=== PATIENT | female | born 1940 | race Caucasian/White ===

== ENCOUNTER → 2019-09-06 09:18 | Outpatient (CLI) | payer MEDICARE, OTHER, SELFPAY ==
--- NOTE | 2019-09-06 | DI.MG.S_ITS ---
BILATERAL DIGITAL SCREENING MAMMOGRAM 3D/2D WITH CAD: 09/06/2019 CLINICAL: Routine screening. Comparison is made to exams dated: 12/13/2015 mammogram, 11/14/2014 mammogram, and 10/27/2013 mammogram - [facility]. The tissue of both breasts is heterogeneously dense. This may lower the sensitivity of mammography. Current study was also evaluated with a Computer Aided Detection (CAD) system. There are benign vascular calcifications in the right breast. No significant masses, calcifications, or other findings are seen in either breast. There has been no significant interval change. IMPRESSION: There is no mammographic evidence of malignancy. A 1 year screening mammogram is recommended. This exam was interpreted at Station ID: [id number]. NOTE: For mammograms, a report in lay terms will be sent to the patient. Approximately 15% of breast malignancies will not be visualized mammographically. In the management of a palpable breast mass, a negative mammogram must not discourage biopsy of a clinically suspicious lesion. Electronically Signed By: Álvaro navarrete/jeffy:09/07/2019 14:37:54 letter sent: Normal Exam ACR BI-RADS Category 2: Benign Finding(s) [id number]
--- NOTE | 2019-09-06 | DI.RAD.S_ITS ---
PROCEDURE: XR LUMBAR SPINE 2-3V INDICATIONS: LOW BACK PAIN TECHNIQUE: 3 views of the lumbar spine were acquired. COMPARISON: [facility], , L-SPINE 2-3 VIEWS, 12/01/2008, 14:15. FINDINGS: Bones: 5 [id number] vertebrae are present. There is abnormal bony alignment, mild to moderate convex rightward scoliosis centered at L3. No vertebral body compression fractures. No suspicious bony lesions. Moderately severe degenerative disc disease is present over the middle and lower thirds of the lumbosacral spine, and facet osteoarthritis becomes progressively more prominent from L3-S1. It is especially severe at L5-S1. There is an associated mild grade 1 anterolisthesis of L4 on L5, previously present in 2008 Soft tissues: Overlying bowel gas pattern is normal. No suspicious soft tissue calcifications. IMPRESSION: No acute trauma found, moderately severe degenerative disc disease and facet osteoarthritis overall with convex rightward scoliosis mild to moderate in severity and mild grade 1 anterolisthesis of L4 on L5 also stable from 2008. Dictated by: Zach Lizama M.D. on 09/06/2019 at 11:23 Approved by: Zach Lizama M.D. on 09/06/2019 at 11:24
--- NOTE | 2019-09-06 | DI.RAD.S_ITS ---
PROCEDURE: FL UPPER GI SERIES INDICATIONS: Gastro-esophageal reflux disease COMPARISON: [facility], , UPPER GI AIR CONTRAST WITH KUB, 01/28/2016, 10:46. FINDINGS: KUB: Preprocedural corporate planner film demonstrates a normal bowel gas pattern. No suspicious abdominal calcifications. Visualized solid organ contours appear normal. Bony structures appear unremarkable. Esophagus: Esophageal mucosa is normal on air-contrast views. On single-contrast views, there is normal esophageal peristalsis. No strictures, extrinsic mass effects, or diverticula. No hiatal hernia or elicited gastroesophageal reflux. Stomach: The stomach is normally distensible, with normal rugal fold thickness. No mucosal masses or ulcers. Pylorus and duodenal bulb appear normal in morphology. Duodenal folds are normal in thickness as well. IMPRESSION: Intact morphology of the area of the esophageal wrap in this patient who has undergone prior fundoplication. No reflux, either spontaneous or elicited, was observed. The esophageal mucosal surfaces are smoothly marginated, free of stricture or evidence of inflammation. No esophageal mass is found. Dictated by: Zach Lizama M.D. on 09/06/2019 at 12:06 Approved by: Zach Lizama M.D. on 09/06/2019 at 12:09
== END ==
PROVIDERS: PCP Internal Medicine; Referring Provider Internal Medicine; Visit Provider Internal Medicine
DX: Z12.31 Encounter for screening mammogram for malignant neoplasm of breast (principal); K21.0 Gastro-esophageal reflux disease with esophagitis; M54.5 Low back pain; M51.36 Other intervertebral disc degeneration, lumbar region; M47.816 Spondylosis without myelopathy or radiculopathy, lumbar region; M41.86 Other forms of scoliosis, lumbar region; M43.16 Spondylolisthesis, lumbar region
CPT/HCPCS: 72100; 74246; 77063; 77067

== ENCOUNTER → 2019-10-06 09:03 | Outpatient (CLI) | payer MEDICARE, OTHER, SELFPAY | PROVIDERS: PCP Internal Medicine; Referring Provider Internal Medicine Gastroenterology; Visit Provider Internal Medicine Gastroenterology | DX: Z12.11 Encounter for screening for malignant neoplasm of colon (principal) | CPT/HCPCS: 36415; 82274 ==

== ENCOUNTER 2019-12-28 08:56 | Inpatient (IN) | payer MEDICARE, OTHER, SELFPAY ==
[2019-12-28] VITALS (12 sets, daily range): BP systolic 131–178; BP diastolic 59–77; PULSE 64–78; RESP 13–21; TEMP 36.2–37.7; O2SAT 97–100; BMI 29.9; BMI 30.2
--- NOTE | 2019-12-28 09:08 | DI.RAD.S_ITS ---
PROCEDURE: XR CHEST 1V INDICATIONS: chest pain TECHNIQUE: One view of the chest was acquired. COMPARISON: None. FINDINGS: Surgical changes and devices: None. Lungs and pleura: Lungs are clear. No pleural effusions or pneumothorax. Mediastinum: Mediastinal contours appear normal. Heart size is normal. Bones and chest wall: No suspicious bony lesions. Overlying soft tissues appear unremarkable. IMPRESSION: No acute cardiopulmonary disease process. Dictated by: Tali Ferro MD, PhD on 12/28/2019 at 10:29 Approved by: Tali Ferro MD, PhD on 12/28/2019 at 10:30
--- NOTE | 2019-12-28 09:19 | ED.CHESTPAIN ---
HPI - Chest Pain General Chief Complaint: Chest Pain Stated Complaint: binding around ribs/mid back pain x1 day Time Seen by Provider: 12/28/19 09:02 Source: patient and family Mode of arrival: Family Vehicle Limitations: no limitations History of Present Illness HPI narrative: CC: Rib and back pain HPI: Patient is an 79-year-old female who states that 4 years ago she had a Estuardo fundoplication and surgery for hiatal hernia and reflux esophagitis. At that time she felt like she was having severe rib pain that was tightening binding radiating into her back. Last night she redeveloped similar rib pain that was sharp and stabbing. It hurt to moved twist take a deep breath. The pain at worst was 7 to 8/10 in intensity. At the present time it is 5/10. It hurts to take a deep breath and cough. She has had nausea and tried vomiting and gagging. Some disordered came up last night. She denies any significant heartburn but has been having burping belching in eructation with neck pain. She denies any shoulder pain jaw pain ear pain arm pain. She denies being excessively weak and tired. She has had no fall or injury. She has felt short of breath. But has had no significant cough. She is a former smoker drinks alcohol periodically does not use any marijuana. She has had her appendix removed and not her gallbladder. She denies a history of pancreatitis diabetes mellitus hypertension myocardial infarction congestive heart failure COPD that admits to history of asthma. The patient has had diarrhea and lives in a alf community that has not had Covid. She is requesting that she is checked for [place] it before she leaves. Related Data Home Medications Medication Instructions Recorded Confirmed estradiol 0.5 mg PO DAILY 12/28/19 12/28/19 omeprazole 20 mg PO DAILY 12/28/19 12/28/19 oxybutynin chloride 5 mg PO DAILY 12/28/19 12/28/19 simvastatin 10 mg PO DAILY 12/28/19 12/28/19 Allergies Allergy/AdvReac Type Severity Reaction Status Date / Time clindamycin Allergy Unknown Verified 12/28/19 09:28 Penicillins Allergy Unknown Verified 12/28/19 09:28 Sulfa (Sulfonamide Allergy Unknown Verified 12/28/19 09:28 Antibiotics) Review of Systems Review of Systems Narrative: REVIEW OF SYSTEMS: CONSTITUTIONAL: She denies any weight change, fever or sweats but has had intermittent chills. NEUROLOGICAL: She denies any headache numbness tingling paresthesias anesthesia is presents or paralysis. EENT: She has had no change in vision sore throat trouble swallowing. CARDIO-PULMONARY: She has had sharp chest pain that feels like her ribs are being bound with a band radiating into her back. She has been short of breath. She has had no significant cough that when she does cough she produces clear sputum without hemoptysis. She complains that it hurts to take a deep breath and cough. She has had no palpitations or racing of her heart. HEMOTOLOGICAL: She denies any bleeding or bruising problems GASTROINTESTINAL: She has had nausea vomiting burping belching eructation without hematemesis coffee-ground emesis melena or hematochezia. She has had a few diarrhea episodes. GENITAL URINARY: She has had no urinary symptoms. MUSCULOSKELETAL/ RHEUMATOLOGICAL: She has had lower middle back at discomfort. Patient History Medical History Hiatal hernia with GERD (Acute) Hyperlipidemia (Acute) Surgical History H/O total hysterectomy (Acute) S/P Estuardo fundoplication (with gastrostomy tube placement) (Acute) Social History household members: caregiver Smoking Status: Former smoker Smoking Status: Former smoker alcohol intake frequency: 0-2 drinks per day Alcohol type: wine Substance Use Type: does not use Exam Narrative Exam Narrative: PHYSICAL EXAM: CONSTITUTIONAL: Awake, Alert, Oriented, Coherent, Cooperative in NAD. Does not appear toxic or ill. Wearing a mask HEAD: AT/NC EENT: PERRL, FROM of eyes, no discharge, no nystagmus NOSE:No epistaxis or nasal drainage MOUTH:Oral mucosa is moist and pink, posterior pharynx is without erythema or exudate. NECK: Supple, no obvious JVD, Trachea is midline without stridor, no palpable LN. SPINE: Palpationof the cervical, Thoracic, Lumbar or Sacral spine reveals no gross deformity or tenderness. No CVA tenderness. THORAX: No deformity, retractions, the patient's is if he sternum lower sternum and lower right left costal sternal margin are tender to palpation which somewhat mimics the pain and discomfort. LUNGS: Clear, symmetrical breath sounds without respiratory distress. Sometimes I think the patient has slightly decreased breath sounds on the right side. HEART: Normal heart tones, regular rhythm and rate without murmur. ABDOMEN: Soft, tender in the epigastrium without guarding or rebound. LYMPHATIC: no palpable spleen. EXTREMITIES: No edema, deformity, tenderness or cyanosis. SKIN: No rash, bruising, petechiae or purpura. NEURO: Awake, alert, oriented, conversive, cranial nerves II-XII are symmetrical , moves all 4 extremities and is ambulatory. Initial Vital Signs Initial Vital Signs: Vital Signs Temperature 98.7 F 12/28/19 09:10 Pulse Rate 78 12/28/19 09:10 Respiratory Rate 18 12/28/19 09:10 Blood Pressure 178/77 H 12/28/19 09:10 Pulse Oximetry 97 12/28/19 09:10 Course Course Course Narrative: 1018: The patient's white blood count is elevated as well as her lipase and D-dimer. The CT of her chest abdomen and pelvis with IV contrast will be obtained. The patient will need to be admitted for acute pancreatitis. 1049 patient's primary care physician is Dr. jenniffer vega who admits to the hospitalist. The hospitalist has been called. A CT scan of the patient's chest and abdomen has been obtained with the results pending at this time. [address] scan of the chest revealed no acute cardiopulmonary pathology. CT of the patient's abdomen reveals 1. hepatic steatosis 2. Cholelithiasis. Although there is no gallbladder wall thickening, there is minimal fluid around the gallbladder. 3. Incidental note is made of several canal stenoses at L3-L4 and marked canal stenosis at L4-L5. If gallbladder pathology is suspected an ultrasound is recommended. An ultrasound will be obtained since the patient has a significantly elevated white blood count and lipase consistent with acute gallstone pancreatitis. 1120: With the patient's history of cholelithiasis, pericholecystic fluid without gallbladder wall thickening an ultrasound of the gallbladder will be obtained. Since the patient's white blood count is elevated a lactic acid has been ordered on the patient as well as LDH and blood cultures. The patient may have acute moy cystitis and will be administered 2 g of cefepime and 500 mg of metronidazole IV. I will call and discuss the patient with General surgery. Will discuss the patient with Dr. Barrera. 1158: Dr. Matthew cormier notified of the patient's condition and laboratory values and requested a consult. Orders Ordered: Acetaminophen (Tylenol) 650 mg PO Q6HR PRN PRN Reason: Fever/Mild Pain (1-3) Last Admin: 12/28/19 18:01 Dose: 650 mg Documented by: ALBERT Dextrose ([id number]) 25 gm IV PRN PRN; Protocol PRN Reason: Hypoglycemia Estradiol (Estrace) 0.5 mg PO DAILY PAUL Lactated Ringer's (Lactated Ringers) 1,000 mls @ 100 mls/hr IV CONT PAUL Last Admin: 12/29/19 01:22 Dose: 100 mls/hr Documented by: Infusion: 12/29/19 01:22 Dose: 100 mls/hr Documented by: Admin: 12/28/19 13:45 Dose: 100 mls/hr Documented by: CHALINO Metronidazole (Flagyl) 500 mg in 100 mls @ 100 mls/hr IV Q8H [facility] Last Admin: 12/29/19 06:41 Dose: 100 mls/hr Documented by: Infusion: 12/28/19 23:53 Dose: 100 mls/hr Documented by: Admin: 12/28/19 22:53 Dose: 100 mls/hr Documented by: Infusion: 12/28/19 20:37 Dose: 0 mls/hr Documented by: Admin: 12/28/19 15:10 Dose: 100 mls/hr Documented by: ADALBERTO Cefotetan Disodium/Dextrose (Cefotan) 2 gm in 50 mls @ 100 mls/hr IV Q12H [facility] [place] Last Admin: 12/28/19 20:45 Dose: 100 mls/hr Documented by: ALBERT Insulin Aspart (Novolog Flexpen) 0 unit SUBCUT Q6H [facility] [place]; Protocol Last Admin: 12/29/19 05:53 Dose: Not Given Documented by: Admin: 12/28/19 23:58 Dose: Not Given Documented by: RENAE Magnesium Hydroxide (Milk Of Magnesia) 30 ml PO DAILY PRN PRN Reason: Constipation Morphine Sulfate (Morphine) 2 mg IV Q4HR PRN PRN Reason: Pain, Moderate (4-6) Naloxone HCl (Narcan) 0.2 mg IV Q2MIN PRN PRN Reason: Opiate Reversal Stored In Pharmacy 1 each PO PRN PRN PRN Reason: PROTOCOL Ondansetron HCl (Zofran) 4 mg IV Q4HR PRN PRN Reason: Nausea And Vomiting Oxybutynin (Ditropan) 5 mg PO DAILY [facility] Pantoprazole Sodium (Protonix) 20 mg PO 0600 [facility] Last Admin: 12/29/19 05:04 Dose: 20 mg Documented by: IVONNE Simvastatin (Zocor) 10 mg PO DAILY [facility] Sucralfate (Carafate) 1 gm PO ACHS [facility] Last Admin: 12/29/19 06:41 Dose: 1 gm Documented by: Admin: 12/28/19 20:45 Dose: 1 gm Documented by: Admin: 12/28/19 16:52 Dose: 1 gm Documented by: Admin: 12/28/19 11:32 Dose: Not Given Documented by: Admin: 12/28/19 09:45 Dose: 1 gm Documented by: CASPER Discontinued Medications Diphenhydramine HCl (Benadryl) 25 mg IV NOW ONE Stop: 12/28/19 11:21 Last Admin: 12/28/19 12:07 Dose: 25 mg Documented by: CASPER Enoxaparin Sodium (Lovenox) 40 mg SUBCUT DAILY [facility] Heparin Sodium (Porcine) (Heparin) 5,000 unit SUBCUT BID [facility] [place] Last Admin: 12/28/19 20:45 Dose: 5,000 unit Documented by: ALBERT Cefepime HCl 2 gm/ Sodium (Chloride) 100 mls @ 200 mls/hr IV NOW ONE Stop: 12/28/19 11:20 Last Infusion: 12/28/19 13:25 Dose: 0 mls/hr Documented by: Admin: 12/28/19 12:47 Dose: 200 mls/hr Documented by: CASPER Metronidazole (Flagyl) 500 mg in 100 mls @ 100 mls/hr IV NOW ONE Stop: 12/28/19 12:18 Last Infusion: 12/28/19 13:52 Dose: 100 mls/hr Documented by: Infusion: 12/28/19 13:26 Dose: 0 mls/hr Documented by: Admin: 12/28/19 13:18 Dose: 100 mls/hr Documented by: CASPER Lactated Ringer's (Lactated Ringers) 1,000 mls @ 1,000 mls/hr IV BOLUS ONE Stop: 12/28/19 13:23 Last Infusion: 12/28/19 13:43 Dose: 0 mls/hr Documented by: Infusion: 12/28/19 13:26 Dose: 0 mls/hr Documented by: Admin: 12/28/19 12:46 Dose: 1,000 mls/hr Documented by: CASPER Insulin Aspart (Novolog Flexpen) 0 unit SUBCUT [facility]; Protocol Last Admin: 12/28/19 20:37 Dose: Not Given Documented by: Admin: 12/28/19 16:52 Dose: Not Given Documented by: ALBERT Ketorolac Tromethamine (Toradol) 15 mg IV NOW ONE Stop: 12/28/19 09:18 Last Admin: 12/28/19 09:44 Dose: 15 mg Documented by: CASPER Metoclopramide HCl (Reglan) 10 mg IV NOW ONE Stop: 12/28/19 09:18 Last Admin: 12/28/19 09:45 Dose: 10 mg Documented by: CASPER Morphine Sulfate (Morphine) 4 mg IV NOW ONE Stop: 12/28/19 10:23 Last Admin: 12/28/19 10:44 Dose: Not Given Documented by: CASPER Non-Formulary Medication (Omeprazole) 20 mg PO DAILY [facility] Vital Signs Vital signs: Vital Signs - 8 hr 12/28/19 09:10 12/28/19 09:30 12/28/19 10:49 Temperature 98.7 F Pulse Rate 78 68 72 Respiratory Rate 18 18 16 Blood Pressure 178/77 H Blood Pressure [Left Arm] 148/68 H 157/70 H Pulse Oximetry 97 99 97 12/28/19 11:00 12/28/19 11:30 Temperature Pulse Rate 69 67 Respiratory Rate 15 13 Blood Pressure Blood Pressure [Left Arm] 156/67 H 164/68 H Pulse Oximetry 98 99 MDM - Chest Pain Medical Records Data Attestation: I reviewed the patient's medical records. Lab Data Attestation: I reviewed the patient's lab results. Result diagrams: 12/29/19 05:00 12/29/19 05:00 Labs: Lab Results 12/28/19 12/28/19 12/28/19 Range/Units 09:24 09:24 09:24 WBC 17.2 H (4.5-11.0) X10^3/uL RBC 4.76 (4.0-5.2) X10^6/uL Hgb 14.9 (12.0-16.0) g/dL Hct 42.9 (36-46) % MCV 90.1 (80-100) fL MCH 31.2 (26-34) PG MCHC 34.6 (30-36) % RDW 12.9 (11.6-14.8) % Plt Count 220 (150-400) X10^3/uL Neut % (Auto) 87.4 H (50-75) % Lymph % (Auto) 4.6 L (25-40) % [place] % (Auto) 7.4 (3-14) % Eos % (Auto) 0.2 L (2-4) % Baso % (Auto) 0.4 (0-2) % Neut # (Auto) 06064 H (9363-7642) /uL Lymph # (Auto) 800 L (4958-0830) /uL [place] # (Auto) 1300 H (0-900) /uL Eos # (Auto) 0 (0-450) /uL Baso # (Auto) 100 (0-100) /uL PT 12.7 (10.1-12.7) SECONDS INR 1.1 (0.9-1.3) APTT 27 (26.4-36.2) SECONDS D-Dimer 450 H (<230) ng/mL Sodium 136 L (137-145) mmol/L Potassium 4.3 (3.4-5.1) mmol/L Chloride 102 (98-107) mmol/L Carbon Dioxide 26 (22-32) mmol/L BUN 14 (7-17) mg/dL Creatinine 0.72 (0.52-1.04) mg/dL Estimated GFR > 60.0 (>60) mL/min BUN/Creatinine Ratio 19.4 (6-22) Glucose 221 H (80-110) mg/dL Hemoglobin A1c (4.0-6.0) % Calcium 9.3 (8.4-10.2) mg/dL Total Bilirubin 3.2 H (0.2-1.3) mg/dL AST 501 H (14-36) IU/L ALT 268 H (<35) IU/L Alkaline Phosphatase 142 H (38-126) U/L Total Creatine Kinase < 20 L (30-135) U/L CK-MB (CK-2) TNP CK-MB (CK-2) Rel Index TNP Troponin I < 0.012 (0.01-0.034) ng/mL Total Protein 7.1 (6.3-8.2) g/dL Albumin 4.2 (3.5-5.0) g/dL Globulin 2.9 (1.7-4.1) g/dL Albumin/Globulin Ratio 1.4 (1.0-2.8) Lipase 2786 H (23-300) U/L Procalcitonin (<0.5) ng/mL Urine RBC (0-5/HPF) Urine WBC (0-5/HPF) Ur Squamous Epith Cells (0-5/HPF) Urine Bacteria (None) Urine Mucus (Negative) Ur Culture Indicated? 12/28/19 12/28/19 12/28/19 Range/Units 09:24 09:24 09:24 WBC (4.5-11.0) X10^3/uL RBC (4.0-5.2) X10^6/uL Hgb (12.0-16.0) g/dL Hct (36-46) % MCV (80-100) fL MCH (26-34) PG MCHC (30-36) % RDW (11.6-14.8) % Plt Count (150-400) X10^3/uL Neut % (Auto) (50-75) % Lymph % (Auto) (25-40) % [place] % (Auto) (3-14) % Eos % (Auto) (2-4) % Baso % (Auto) (0-2) % Neut # (Auto) (9183-8013) /uL Lymph # (Auto) (3423-8394) /uL [place] # (Auto) (0-900) /uL Eos # (Auto) (0-450) /uL Baso # (Auto) (0-100) /uL PT (10.1-12.7) SECONDS INR (0.9-1.3) APTT (26.4-36.2) SECONDS D-Dimer Cancelled (<230) ng/mL Sodium (137-145) mmol/L Potassium (3.4-5.1) mmol/L Chloride (98-107) mmol/L Carbon Dioxide (22-32) mmol/L BUN (7-17) mg/dL Creatinine (0.52-1.04) mg/dL Estimated GFR (>60) mL/min BUN/Creatinine Ratio (6-22) Glucose (80-110) mg/dL Hemoglobin A1c 7.4 H (4.0-6.0) % Calcium (8.4-10.2) mg/dL Total Bilirubin (0.2-1.3) mg/dL AST (14-36) IU/L ALT (<35) IU/L Alkaline Phosphatase (38-126) U/L Total Creatine Kinase (30-135) U/L CK-MB (CK-2) CK-MB (CK-2) Rel Index Troponin I (0.01-0.034) ng/mL Total Protein (6.3-8.2) g/dL Albumin (3.5-5.0) g/dL Globulin (1.7-4.1) g/dL Albumin/Globulin Ratio (1.0-2.8) Lipase (23-300) U/L Procalcitonin 0.92 H (<0.5) ng/mL Urine RBC (0-5/HPF) Urine WBC (0-5/HPF) Ur Squamous Epith Cells (0-5/HPF) Urine Bacteria (None) Urine Mucus (Negative) Ur Culture Indicated? 12/28/19 Range/Units 10:45 WBC (4.5-11.0) X10^3/uL RBC (4.0-5.2) X10^6/uL Hgb (12.0-16.0) g/dL Hct (36-46) % MCV (80-100) fL MCH (26-34) PG MCHC (30-36) % RDW (11.6-14.8) % Plt Count (150-400) X10^3/uL Neut % (Auto) (50-75) % Lymph % (Auto) (25-40) % [place] % (Auto) (3-14) % Eos % (Auto) (2-4) % Baso % (Auto) (0-2) % Neut # (Auto) (8569-9966) /uL Lymph # (Auto) (2479-6355) /uL [place] # (Auto) (0-900) /uL Eos # (Auto) (0-450) /uL Baso # (Auto) (0-100) /uL PT (10.1-12.7) SECONDS INR (0.9-1.3) APTT (26.4-36.2) SECONDS D-Dimer (<230) ng/mL Sodium (137-145) mmol/L Potassium (3.4-5.1) mmol/L Chloride (98-107) mmol/L Carbon Dioxide (22-32) mmol/L BUN (7-17) mg/dL Creatinine (0.52-1.04) mg/dL Estimated GFR (>60) mL/min BUN/Creatinine Ratio (6-22) Glucose (80-110) mg/dL Hemoglobin A1c (4.0-6.0) % Calcium (8.4-10.2) mg/dL Total Bilirubin (0.2-1.3) mg/dL AST (14-36) IU/L ALT (<35) IU/L Alkaline Phosphatase (38-126) U/L Total Creatine Kinase (30-135) U/L CK-MB (CK-2) CK-MB (CK-2) Rel Index Troponin I (0.01-0.034) ng/mL Total Protein (6.3-8.2) g/dL Albumin (3.5-5.0) g/dL Globulin (1.7-4.1) g/dL Albumin/Globulin Ratio (1.0-2.8) Lipase (23-300) U/L Procalcitonin (<0.5) ng/mL Urine RBC None seen (0-5/HPF) Urine WBC 0-1/hpf (0-5/HPF) Ur Squamous Epith Cells 1-5 /hpf (0-5/HPF) Urine Bacteria Few (2-10) H (None) Urine Mucus 1+ H (Negative) Ur Culture Indicated? Specimen cultured Urine Dip Bedside Urine Glucose Negative Bedside Urine Bilirubin + 1 Bedside Urine Ketone - Negative Urine Specific [place] 1.010 Bedside Urine Occult Blood - Negative Bedside Urine pH 7.5 Bedside Urine Protein +/- 15 Bedside Urine Urobilinogen 2+ 4mg Bedside Urine Nitrite - Negative Bedside Urine Leukocytes +/- 15 Esterase ECG Data Attestation: I personally reviewed and interpreted this ECG as follows: Interpretation: The patient's EKG obtained at 09:1 8:58 a.m. reveals a normal sinus rhythm with a ventricular rate of 70. QTC is normal at 425 milliseconds. The rest of the intervals are normal. There is a left axis deviation. The patient has low voltage criteria with an inverted T-wave in V1. There are no other acute diagnostic ST segment changes. There are no ST segment changes or T-waves to suggest ischemia or infarct. Discharge Plan Departure Patient Disposition: Admitted As Inpatient Clinical Impression: Atypical chest pain, Acute epigastric pain, Acute cholecystitis Acute pancreatitis Qualifiers: Pancreatitis type: unspecified pancreatitis type Acute pancreatitis complication: unspecified Qualified Code(s): K85.90 - Acute pancreatitis without necrosis or infection, unspecified Leukocytosis Qualifiers: Leukocytosis type: unspecified Qualified Code(s): D72.829 - Elevated white blood cell count, unspecified Cholelithiasis Qualifiers: Cholelithiasis location: gallbladder Cholecystitis presence: with cholecystitis Cholecystitis acuity: acute Biliary obstruction: without biliary obstruction Qualified Code(s): K80.00 - Calculus of gallbladder with acute cholecystitis without obstruction Discharge Date/Time: 12/28/19 13:28 Referrals: Martin Ricketts MD [Primary Care Provider] - Admit Date/Time: 12/28/19 11:53 Admit Provider: Conrad Benitez
[2019-12-28 09:35] LABS: Add Manual Diff / Slide Review NO; Basophils Absolute Auto 100 /uL (0-100); Basophils Percent Auto 0.4 % (0-2); Eosinophils Absolute Auto 0 /uL (0-450); Eosinophils Percent Auto 0.2 % (2-4); Hematocrit 42.9 % (36-46); Hemoglobin 14.9 g/dL (12.0-16.0); Lymphocytes Absolute Auto 800 /uL (1100-4500); Lymphocytes Percent Auto 4.6 % (25-40); Mean Corpuscular HGB Conc 34.6 % (30-36); Mean Corpuscular Hemoglobin 31.2 PG (26-34); Mean Corpuscular Volume 90.1 fL (80-100); Monocytes Absolute Auto 1300 /uL (0-900); Monocytes Percent Auto 7.4 % (3-14); Neutrophils Absolute Auto 15100 /uL (1500-7000); Neutrophils Percent Auto 87.4 % (50-75); Platelet Count 220 X10^3/uL (150-400); Red Blood Cell Count 4.76 X10^6/uL (4.0-5.2); Red Cell Distribution Width 12.9 % (11.6-14.8); White Blood Cell Count 17.2 X10^3/uL (4.5-11.0)
[2019-12-28 09:41] LABS: INR 1.1 (0.9-1.3); Prothrombin Time 12.7 SECONDS (10.1-12.7)
[2019-12-28 09:44] LABS: D Dimer 450 ng/mL (<230); PTT Partial Thromboplastin Tim 27 SECONDS (26.4-36.2)
[2019-12-28] MEDS: KETOROLAC 60 MG/2 ML VIAL 15 MG IV (09:44)
[2019-12-28 09:45] LABS: Alanine Aminotransferase 268 IU/L (<35); Albumin 4.2 g/dL (3.5-5.0); Albumin Globulin Ratio 1.4 (1.0-2.8); Alkaline Phosphatase 142 U/L (38-126); Aspartate Aminotransferase 501 IU/L (14-36); BUN Creatinine Ratio 19.4 (6-22); Bilirubin Total 3.2 mg/dL (0.2-1.3); Blood Urea Nitrogen 14 mg/dL (7-17); Calcium 9.3 mg/dL (8.4-10.2); Carbon Dioxide 26 mmol/L (22-32); Chloride 102 mmol/L (98-107); Creatine Kinase < 20 U/L (30-135); Estimated Glomerular Filt Rate > 60.0 mL/min (>60); Globulin 2.9 g/dL (1.7-4.1); Glucose 221 mg/dL (80-110); HEMOLYSIS < 15 (0-50); Potassium 4.3 mmol/L (3.4-5.1); Sodium 136 mmol/L (137-145); Total Protein 7.1 g/dL (6.3-8.2)
[2019-12-28] MEDS: SUCRALFATE 1 GM/10 ML ORAL SUSP PO ×3 (09:45→20:45)
[2019-12-28] MEDS: METOCLOPRAMIDE 10 MG/2 ML INJ IV (09:45)
[2019-12-28 09:55] LABS: Lipase 2786 U/L (23-300)
[2019-12-28 09:56] LABS: Troponin I < 0.012 ng/mL (0.01-0.034)
--- NOTE | 2019-12-28 10:20 | DI.CT.S_ITS ---
PROCEDURE: CT CHEST ABD PEL W CON INDICATIONS: acute abdominal pain with chest pain, pancreatitis, SOB, Paula TECHNIQUE: After the administration of intravenous contrast, 5 mm thick sections acquired from the lung apices to the symphysis. 5 mm coronal and sagittal reformats were performed, with additional 7 mm MIP reformats through the lungs. For radiation dose reduction, the following was used: automated exposure control, adjustment of mA and/or kV according to patient size. COMPARISON: None. FINDINGS: Image quality: Excellent. CHEST: Lungs and pleura: No acute airspace opacities. No pleural effusions or pneumothorax. Central and peripheral airways appear patent and normal in caliber. Mediastinum: Heart size is normal. No pericardial effusion. No mediastinal or hilar adenopathy by size criteria. Thoracic aorta and central pulmonary arteries are normal in size. Esophagus is normal in caliber. No hiatal hernia. Chest wall: No axillary or supraclavicular adenopathy by size criteria. Thyroid gland is unremarkable as visualized.. ABDOMEN: Solid organs: Liver is normal in size and enhancement. Hepatic steatosis. Gallbladder contains numerous calcified gallstones. No gallbladder wall thickening. Minimal fluid around the gallbladder.. Biliary system is non dilated. Pancreas enhances normally. No CT evidence of acute pancreatitis. Spleen is normal in size and enhancement. No adrenal nodules. Kidneys demonstrate normal size and enhancement, without hydronephrosis. Peritoneum and bowel: Bowel loops demonstrate normal wall thickness and caliber. No free fluid or air. Nodes and vessels: No retroperitoneal or mesenteric adenopathy by size criteria. Aorta and inferior vena cava are normal in size. Miscellaneous: No ventral hernias. PELVIS: Genitourinary: Bladder wall thickness is normal. Miscellaneous: No inguinal hernias or adenopathy. Remote hysterectomy. Bones: No suspicious bony lesions. No vertebral body compression fractures. Extensive lumbar degenerative change. Severe canal stenosis at L3-L4. Marked canal stenosis at L4-L5. IMPRESSION: 1. Hepatic steatosis. 2. Cholelithiasis. Although there is no gallbladder wall thickening, there is minimal fluid around the gallbladder. 3. Incidental note is made of severe canal stenosis at L3-L4 and marked canal stenosis at L4-L5. Comment: Suspect acute gallbladder pathology, right upper quadrant ultrasound may be helpful. Dictated by: Dc Velazquez M.D. on 12/28/2019 at 9:50 Approved by: Dc Velazquez M.D. on 12/28/2019 at 9:57
[2019-12-28 11:01] LABS: RBC Urine None Seen (0-5/HPF)
[2019-12-28 11:19] LABS: Bacteria Urine Few (2-10); Culture Indicated Urine Specimen Cultured; Mucus Urine 1+ (Negative); Squamous Epithelial Cell Urine 1-5 /HPF (0-5/HPF); WBC Urine 0-1/HPF (0-5/HPF)
--- NOTE | 2019-12-28 11:21 | DI.US.S_ITS ---
PROCEDURE: US ABDOMEN LIMITED INDICATIONS: CT REVEALS CHOLELITHIASIS W/PERICYSTICOLIC FLUID TECHNIQUE: Real-time focused scanning was performed of the abdomen, with image documentation. COMPARISON: [facility], CT, CT CHEST ABD PEL W CON, 12/28/2019, 10:23. FINDINGS: Liver is normal in size but hyperechoic consistent with fatty infiltration. Gallstones are present within the gallbladder lumen, and there is a small amount of pericholecystic free fluid. The gallbladder wall is not thickened at 1.9 mm. Focal tenderness during sonographic palpation is associated. IMPRESSION: Pain over the gallbladder, mild pericholecystic free fluid, gallstones present within the gallbladder lumen but the gallbladder wall is not thickened. The common duct measures normal at 5.6 mm. Overall mild acute cholecystitis likely is present. Dictated by: Zach Lizama M.D. on 12/28/2019 at 13:35 Approved by: Zach Lizama M.D. on 12/28/2019 at 13:36
[2019-12-28] MEDS: diphenhydrAMINE 50 MG/ML VIAL 25 MG IV (12:07)
[2019-12-28 12:12] LABS: Lactate Dehydrogenase 1326 U/L (313-618)
[2019-12-28 12:25] LABS: Lactate (Lactic Acid) 1.6 mmol/L (0.7-2.1)
[2019-12-28] MEDS: LACTATED RINGERS 1,000 ML 1000 ML IV (12:46)
[2019-12-28] MEDS: CEFEPIME 2 GM in SODIUM CHLORIDE 0.9% 100 ML 200 ML IV (12:47)
[2019-12-28 12:54] LABS: Hemoglobin A1C% w Est Avg Glu 7.4 % (4.0-6.0)
--- NOTE | 2019-12-28 12:56 | PC.NURSE ---
antibiotics started late due to difficulty with lab stick.
[2019-12-28 13:13] LABS: Procalcitonin 0.92 ng/mL (<0.5)
[2019-12-28] MEDS: metroNIDAZOLE 500 MG/100 ML PIGGYBACK 100 MG IV ×3 (13:18→22:53)
[2019-12-28] MEDS: LACTATED RINGERS 1,000 ML 100 ML IV (13:45)
--- NOTE | 2019-12-28 15:08 | P.HP_ITS ---
History of Present Illness History of Present Illness Date Patient Seen: 12/28/19 Time Patient Seen: 14:30 Date of Onset of Symptoms: 12/27/19 Chief complaint: binding around ribs/mid back pain x1 day Narrative: Patient is an 79-year-old female with history of obesity, borderline diabetes, GERD, history of Estuardo fundoplication who presents to ER due to ongoing severe abdominal and back pain. She had acute onset of discomfort last night. She describes location as in the abdomen, around the ribs, and radiating to the mid back. She had nausea and threw up once this morning. The pain reminded her of her reflux prior to her Estuardo procedure although she has not had any reflux symptoms since her surgery at [facility] 4 years ago. She had some chills without known fever. Last bowel movement was this morning. She last ate anything yesterday evening. ER workup included CT which showed gallstones without gallbladder wall thic kening and minimal fluid around the gallbladder. Also hepatic steatosis. Abdominal ultrasound indicated pain over the gallbladder, mild pericholecystic fluid, gallstones without gallbladder wall thickening. The common bile duct was normal at 5.6 mm. Indicated elevated WBC 17.2 with left shift, glucose 221, bilirubin 3.2, AST 501, ALT 268, alk-phos 142, creatinine 0.72, normal lytes. Her lipase was elevated at 2786. Procalcitonin was elevated at 0.92. Patient History Medical History (Updated 12/28/19 @ 15:15 by Conrad Benitez MD) Hiatal hernia with GERD (Acute) Hyperlipidemia (Acute) Surgical History (Updated 12/28/19 @ 15:15 by Conrad Benitez MD) H/O total hysterectomy (Acute) S/P Estuardo fundoplication (with gastrostomy tube placement) (Acute) Family & Social History Social History: household members caregiver Prior Living Arrangements Senior Living Facility Safety & Behavioral: Feels Safe in Current Yes Environment Been Physically Hurt or No Threatened By a Person Suicidal Ideation Description None Suicide Plan Description No Plan Tobacco & Substance use: Smoking Status Former smoker alcohol intake frequency 0-2 drinks per day Substance Use Type does not use Meds Home Medications and Allergies Home Medications Medication Instructions Recorded Confirmed Type estradiol 0.5 mg PO DAILY 12/28/19 12/28/19 History omeprazole 20 mg PO DAILY 12/28/19 12/28/19 History oxybutynin chloride 5 mg PO DAILY 12/28/19 12/28/19 History simvastatin 10 mg PO DAILY 12/28/19 12/28/19 History Allergies Allergy/AdvReac Type Severity Reaction Status Date / Time clindamycin Allergy Unknown Verified 12/28/19 09:28 Penicillins Allergy Unknown Verified 12/28/19 09:28 Sulfa (Sulfonamide Allergy Unknown Verified 12/28/19 09:28 Antibiotics) Review of Systems Review of Systems ROS: Yes All systems reviewed with the patient and are negative except as otherwise documented Exam Vital Signs (past 8 hours): - 12/28/19 09:10 12/28/19 09:30 12/28/19 10:49 Temperature 98.7 F Pulse Rate 78 68 72 Respiratory Rate 18 18 16 Blood Pressure 178/77 H Blood Pressure [Left Arm] 148/68 H 157/70 H Pulse Oximetry 97 99 97 12/28/19 11:00 12/28/19 11:30 12/28/19 12:07 Temperature Pulse Rate 69 67 64 Respiratory Rate 15 13 21 Blood Pressure Blood Pressure [Left Arm] 156/67 H 164/68 H 148/66 H Pulse Oximetry 98 99 98 12/28/19 12:16 12/28/19 12:54 12/28/19 13:30 Temperature 97.2 F L Pulse Rate 64 64 Respiratory Rate 20 18 Blood Pressure 160/71 H Blood Pressure [Left Arm] 159/72 H Pulse Oximetry 100 97 99 Oxygen Delivery Method Room Air Oxygen Flow Rate 0 Narrative Exam Narrative: General: Alert and pleasant female in no acute distress HEENT: Pupils equal and react, oropharynx unremarkable Neck: Supple, trachea midline, no lymphadenopathy Lungs: Clear to auscultation Heart: Normal S1 and S2, regular rate and rhythm, no murmur Abdomen: Obese, bowel sounds present, soft without guarding or tenderness (patient states was tender in ER), no liver or spleen enlargement Extremities: No peripheral edema Neurological: Sensorium intact, nonfocal Objective Labs Result Diagrams: 12/28/19 09:24 12/28/19 09:24 Labs: Laboratory Results - last 24 hr 12/28/19 12/28/19 12/28/19 09:24 09:24 09:24 WBC 17.2 H RBC 4.76 Hgb 14.9 Hct 42.9 MCV 90.1 MCH 31.2 MCHC 34.6 RDW 12.9 Plt Count 220 Neut % (Auto) 87.4 H Lymph % (Auto) 4.6 L [place] % (Auto) 7.4 Eos % (Auto) 0.2 L Baso % (Auto) 0.4 Neut # (Auto) 02019 H Lymph # (Auto) 800 L [place] # (Auto) 1300 H Eos # (Auto) 0 Baso # (Auto) 100 PT 12.7 INR 1.1 APTT 27 D-Dimer 450 H Sodium 136 L Potassium 4.3 Chloride 102 Carbon Dioxide 26 BUN 14 Creatinine 0.72 Estimated GFR > 60.0 BUN/Creatinine Ratio 19.4 Glucose 221 H Hemoglobin A1c Lactate Calcium 9.3 Total Bilirubin 3.2 H AST 501 H ALT 268 H Alkaline Phosphatase 142 H Lactate Dehydrogenase Total Creatine Kinase < 20 L CK-MB (CK-2) TNP CK-MB (CK-2) Rel Index TNP Troponin I < 0.012 Total Protein 7.1 Albumin 4.2 Globulin 2.9 Albumin/Globulin Ratio 1.4 Lipase 2786 H Procalcitonin Urine RBC Urine WBC Ur Squamous Epith Cells Urine Bacteria Urine Mucus Ur Culture Indicated? 12/28/19 12/28/19 12/28/19 09:24 09:24 09:24 WBC RBC Hgb Hct MCV MCH MCHC RDW Plt Count Neut % (Auto) Lymph % (Auto) [place] % (Auto) Eos % (Auto) Baso % (Auto) Neut # (Auto) Lymph # (Auto) [place] # (Auto) Eos # (Auto) Baso # (Auto) PT INR APTT D-Dimer Cancelled Sodium Potassium Chloride Carbon Dioxide BUN Creatinine Estimated GFR BUN/Creatinine Ratio Glucose Hemoglobin A1c 7.4 H Lactate Calcium Total Bilirubin AST ALT Alkaline Phosphatase Lactate Dehydrogenase Total Creatine Kinase CK-MB (CK-2) CK-MB (CK-2) Rel Index Troponin I Total Protein Albumin Globulin Albumin/Globulin Ratio Lipase Procalcitonin 0.92 H Urine RBC Urine WBC Ur Squamous Epith Cells Urine Bacteria Urine Mucus Ur Culture Indicated? 12/28/19 12/28/19 12/28/19 10:45 11:55 11:55 WBC RBC Hgb Hct MCV MCH MCHC RDW Plt Count Neut % (Auto) Lymph % (Auto) [place] % (Auto) Eos % (Auto) Baso % (Auto) Neut # (Auto) Lymph # (Auto) [place] # (Auto) Eos # (Auto) Baso # (Auto) PT INR APTT D-Dimer Sodium Potassium Chloride Carbon Dioxide BUN Creatinine Estimated GFR BUN/Creatinine Ratio Glucose Hemoglobin A1c Lactate 1.6 Calcium Total Bilirubin AST ALT Alkaline Phosphatase Lactate Dehydrogenase 1326 H Total Creatine Kinase CK-MB (CK-2) CK-MB (CK-2) Rel Index Troponin I Total Protein Albumin Globulin Albumin/Globulin Ratio Lipase Procalcitonin Urine RBC None seen Urine WBC 0-1/hpf Ur Squamous Epith Cells 1-5 /hpf Urine Bacteria Few (2-10) H Urine Mucus 1+ H Ur Culture Indicated? Specimen cultured Assessment & Plan Assessment & Plan narrative: This is an 79-year-old female with obesity, gallstones, diabetes presenting with acute abdominal pain radiating to the back, nausea and vomiting x 1 day. 1. Acute gallstone cholecystitis, present on admission, active -patient with upper abdominal pain, gallstones and pericholecystic fluid on ultrasound and CT, without GB wall thickening -afebrile with stable vitals, normal lactic acid, WBC 17.2 with elevated procalcitonin -bowel rest, IV antibiotics -Cefotetan 2 g IV Q 12 hours and metronidazole 500 mg IV q.8 hours for antibiotic management -LR 100 cc/hour -morphine IV as needed for moderate severe pain, Zofran IV as needed for nausea/vomiting -surgical consult, Dr. Le -patient without history of cardiac disease, troponin is normal, and she is at low risk for surgery (timing per Dr. Le) 2. Acute gallstone pancreatitis, present on admission, active -presented with upper abdominal pain radiating to back, lipase 2786, elevated bilirubin, alk-phos and LFTs consistent with gallstone pancreatitis -no pancreatic fluid or inflammation on CT -managed with bowel rest and IV fluids and pain control 3. Type 2 diabetes, new diagnosis -patient reports history of borderline diabetes without previous diabetes diagnosis -glucose 221, hemoglobin A1c 7.4 confirmatory of type 2 diabetes -provide sliding scale insulin -patient counseled briefly on diet and increasing level of activity and possibly starting on oral medication through her PCP -continue simvastatin 10 mg q.d. per home routine Admit status: Inpatient DVT prophylaxis: Enoxaparin Code status: Full code
--- NOTE | 2019-12-28 15:20 | PC.NURSE ---
Patient admitted to [facility] wheeled from ED around 1300. Patient AxO x4. Lungs CTA, Abdomen soft non tender BT x4. 100% O2 sat on RA. Patient denies any pain or any discomfort. IV Cefotan and Flagyl infused prior shift change. Right forearm peripheral IV intact. LR fluid running at 100mls/hr. Patient education done regarding the use of call light. Patien verbalized understanding
--- NOTE | 2019-12-28 16:57 | PM.CN ---
History of Present Illness Consult details Date Patient Seen: 12/28/19 Time Patient Seen: 16:57 Chief complaint: binding around ribs/mid back pain x1 day Reason for consult: Gallstone pancreatitis; acute cholecystitis Requesting provider: Conrad Benitez Narrative: This is an 79 yo woman with history of obesity, borderline DM, GERD, history of open repair of massive paraesophageal hernia and Estuardo fundoplication. She presented today to the ER with severe abdominal and back pain. She had acute onset of upper abdominal pain after eating a beef soup for dinner. The pain was bilateral under her anterior ribs radiating around to the mid back. She had nausea and threw up once this morning. She was afraid the pain may be due to a problem from her prior PEH repair. She has never had any symptoms or problems related to the surgery. She still takes Omeprazole, but says she has not had any reflux symptoms since her PEH repair at [facility] 4 years ago. She denies fevers or jaundice. Last bowel movement was this morning. She last PO intake was yesterday evening. In the ER she had a CT scan which showed gallstones without gallbladder wall thickening and minimal fluid around the gallbladder, and hepatic steatosis. Abdominal ultrasound with positive chandler sign, mild pericholecystic fluid, gallstones without gallbladder wall thickening. The CBD was normal at 5.6 mm. WBC was 17.2 with left shift, glucose 221, bilirubin 3.2, AST 501, ALT 268, alk-phos 142, creatinine 0.72, normal lytes. Her lipase was elevated at 2786. Procalcitonin was elevated at 0.92. She was admitted to the hospitalist service. She says her pain is better now since receiving pain meds. She denies nausea at this time. ROS: CONSTITUTIONAL: She denies any weight change, fever or sweats but has had intermittent chills. NEUROLOGICAL: She denies any headache numbness tingling paresthesias anesthesia is presents or paralysis. EENT: She has had no change in vision sore throat trouble swallowing. CARDIO-PULMONARY: She has had sharp chest pain that feels like her ribs are being bound with a band radiating into her back. She has been short of breath. She has had no significant cough that when she does cough she produces clear sputum without hemoptysis. She complains that it hurts to take a deep breath and cough. She has had no palpitations or racing of her heart. HEMOTOLOGICAL: She denies any bleeding or bruising problems GASTROINTESTINAL: She has had nausea vomiting burping belching eructation without hematemesis coffee-ground emesis melena or hematochezia. She has had a few diarrhea episodes. GENITAL URINARY: She has had no urinary symptoms. MUSCULOSKELETAL/ RHEUMATOLOGICAL: She has had lower middle back at discomfort. PE: GENERAL: Alert, comfortable. Appears stated age. Answers questions promptly and appropriately. Vital signs noted. HENT: Normocephalic, atraumatic. Hearing intact. Oral mucosa is pink and moist. EYES: Conjunctiva pink, sclera white, no periorbital swelling. CARDIOVASCULAR: Regular rate. No pedal edema. RESPIRATORY: Non-tachypneic, breathing comfortably on room air. GASTROINTESTINAL: Abdomen soft, nontender, and non-distended; well healed upper midline incisional scar GENITALURINARY: No flank tenderness. MUSCULOSKELETAL: Equal tone and mass bilaterally. SKIN: Warm, dry, soft, appropriate color for ethnicity. No other lesions, rashes, or wounds. NEURO: Alert and Oriented X 3. No gross sensory deficits, or cognitive issues. PSYCH: Appropriate affect and mood. Meds Home Medications and Allergies Home Medications Medication Instructions Recorded Confirmed Type estradiol 0.5 mg PO DAILY 12/28/19 12/28/19 History omeprazole 20 mg PO DAILY 12/28/19 12/28/19 History oxybutynin chloride 5 mg PO DAILY 12/28/19 12/28/19 History simvastatin 10 mg PO DAILY 12/28/19 12/28/19 History Allergies Allergy/AdvReac Type Severity Reaction Status Date / Time clindamycin Allergy Unknown Verified 12/28/19 09:28 Penicillins Allergy Unknown Verified 12/28/19 09:28 Sulfa (Sulfonamide Allergy Unknown Verified 12/28/19 09:28 Antibiotics) Exam Vital Signs (past 8 hours): - 12/28/19 09:10 12/28/19 09:30 12/28/19 10:49 Temperature 98.7 F Pulse Rate 78 68 72 Respiratory Rate 18 18 16 Blood Pressure 178/77 H Blood Pressure [Left Arm] 148/68 H 157/70 H Pulse Oximetry 97 99 97 12/28/19 11:00 12/28/19 11:30 12/28/19 12:07 Temperature Pulse Rate 69 67 64 Respiratory Rate 15 13 21 Blood Pressure Blood Pressure [Left Arm] 156/67 H 164/68 H 148/66 H Pulse Oximetry 98 99 98 12/28/19 12:16 12/28/19 12:54 12/28/19 13:30 Temperature 97.2 F L Pulse Rate 64 64 Respiratory Rate 20 18 Blood Pressure 160/71 H Blood Pressure [Left Arm] 159/72 H Pulse Oximetry 100 97 99 12/28/19 16:05 Temperature 99.9 F H Pulse Rate 78 Respiratory Rate 20 Blood Pressure 156/73 H Blood Pressure [Left Arm] Pulse Oximetry 98 Oxygen Delivery Method Room Air Oxygen Flow Rate [address] scan - abdomen: Radiologist's impression: [address] [address] Ultrasound Report Signed Patient: Mary Kenny EMR#: [id number] : 1940Acct:[id number] Age/Sex: 79 / FDate of Service: 12/28/19 Loc: HQ820-6 Accession Number: [id number] Procedure: US abdomen limited Ordering Provider: Weston Bender MD PROCEDURE: US ABDOMEN LIMITED INDICATIONS: CT REVEALS CHOLELITHIASIS W/PERICYSTICOLIC FLUID TECHNIQUE: Real-time focused scanning was performed of the abdomen, with image documentation. COMPARISON: [facility], CT, CT CHEST ABD PEL W CON, 12/28/2019, 10:23. FINDINGS: Liver is normal in size but hyperechoic consistent with fatty infiltration. Gallstones are present within the gallbladder lumen, and there is a small amount of pericholecystic free fluid. The gallbladder wall is not thickened at 1.9 mm. Focal tenderness during sonographic palpation is associated. IMPRESSION: Pain over the gallbladder, mild pericholecystic free fluid, gallstones present within the gallbladder lumen but the gallbladder wall is not thickened. The common duct measures normal at 5.6 mm. Overall mild acute cholecystitis likely is present. Dictated by: Zach Lizama M.D. on 12/28/2019 at 13:35 Approved by: Zach Lizama M.D. on 12/28/2019 at 13:[address] [address] [address] Scan Report Signed Patient: Mary Kenny EMR#: [id number] : 1940Acct:[id number] Age/Sex: 79 / FDate of Service: 12/28/19 Loc: ED Accession Number: [id number] Procedure: CT chest abd pel w con Ordering Provider: Weston Bender MD PROCEDURE: CT CHEST ABD PEL W CON INDICATIONS: acute abdominal pain with chest pain, pancreatitis, SOB, Paula TECHNIQUE: After the administration of intravenous contrast, 5 mm thick sections acquired from the lung apices to the symphysis. 5 mm coronal and sagittal reformats were performed, with additional 7 mm MIP reformats through the lungs. For radiation dose reduction, the following was used: automated exposure control, adjustment of mA and/or kV according to patient size. COMPARISON: None. FINDINGS: Image quality: Excellent. CHEST: Lungs and pleura: No acute airspace opacities. No pleural effusions or pneumothorax. Central and peripheral airways appear patent and normal in caliber. Mediastinum: Heart size is normal. No pericardial effusion. No mediastinal or hilar adenopathy by size criteria. Thoracic aorta and central pulmonary arteries are normal in size. Esophagus is normal in caliber. No hiatal hernia. Chest wall: No axillary or supraclavicular adenopathy by size criteria. Thyroid gland is unremarkable as visualized.. ABDOMEN: Solid organs: Liver is normal in size and enhancement. Hepatic steatosis. Gallbladder contains numerous calcified gallstones. No gallbladder wall thickening. Minimal fluid around the gallbladder.. Biliary system is non dilated. Pancreas enhances normally. No CT evidence of acute pancreatitis. Spleen is normal in size and enhancement. No adrenal nodules. Kidneys demonstrate normal size and enhancement, without hydronephrosis. Peritoneum and bowel: Bowel loops demonstrate normal wall thickness and caliber. No free fluid or air. Nodes and vessels: No retroperitoneal or mesenteric adenopathy by size criteria. Aorta and inferior vena cava are normal in size. Miscellaneous: No ventral hernias. PELVIS: Genitourinary: Bladder wall thickness is normal. Miscellaneous: No inguinal hernias or adenopathy. Remote hysterectomy. Bones: No suspicious bony lesions. No vertebral body compression fractures. Extensive lumbar degenerative change. Severe canal stenosis at L3-L4. Marked canal stenosis at L4-L5. IMPRESSION: 1. Hepatic steatosis. 2. Cholelithiasis. Although there is no gallbladder wall thickening, there is minimal fluid around the gallbladder. 3. Incidental note is made of severe canal stenosis at L3-L4 and marked canal stenosis at L4-L5. Comment: Suspect acute gallbladder pathology, right upper quadrant ultrasound may be helpful. Dictated by: Dc Velazquez M.D. on 12/28/2019 at 9:50 Approved by: Dc Velazquez M.D. on 12/28/2019 at 9:57 Labs Result Diagrams: 12/28/19 09:24 12/28/19 09:24 Labs: Laboratory Results - last 24 hr 12/28/19 12/28/19 12/28/19 09:24 09:24 09:24 WBC 17.2 H RBC 4.76 Hgb 14.9 Hct 42.9 MCV 90.1 MCH 31.2 MCHC 34.6 RDW 12.9 Plt Count 220 Neut % (Auto) 87.4 H Lymph % (Auto) 4.6 L [place] % (Auto) 7.4 Eos % (Auto) 0.2 L Baso % (Auto) 0.4 Neut # (Auto) [address] H Lymph # (Auto) 800 L [place] # (Auto) 1300 H Eos # (Auto) 0 Baso # (Auto) 100 PT 12.7 INR 1.1 APTT 27 D-Dimer 450 H Sodium 136 L Potassium 4.3 Chloride 102 Carbon Dioxide 26 BUN 14 Creatinine 0.72 Estimated GFR > 60.0 BUN/Creatinine Ratio 19.4 Glucose 221 H Hemoglobin A1c Lactate Calcium 9.3 Total Bilirubin 3.2 H AST 501 H ALT 268 H Alkaline Phosphatase 142 H Lactate Dehydrogenase Total Creatine Kinase < 20 L CK-MB (CK-2) TNP CK-MB (CK-2) Rel Index TNP Troponin I < 0.012 Total Protein 7.1 Albumin 4.2 Globulin 2.9 Albumin/Globulin Ratio 1.4 Lipase 2786 H Procalcitonin Urine RBC Urine WBC Ur Squamous Epith Cells Urine Bacteria Urine Mucus Ur Culture Indicated? 12/28/19 12/28/19 12/28/19 09:24 09:24 09:24 WBC RBC Hgb Hct MCV MCH MCHC RDW Plt Count Neut % (Auto) Lymph % (Auto) [place] % (Auto) Eos % (Auto) Baso % (Auto) Neut # (Auto) Lymph # (Auto) [place] # (Auto) Eos # (Auto) Baso # (Auto) PT INR APTT D-Dimer Cancelled Sodium Potassium Chloride Carbon Dioxide BUN Creatinine Estimated GFR BUN/Creatinine Ratio Glucose Hemoglobin A1c 7.4 H Lactate Calcium Total Bilirubin AST ALT Alkaline Phosphatase Lactate Dehydrogenase Total Creatine Kinase CK-MB (CK-2) CK-MB (CK-2) Rel Index Troponin I Total Protein Albumin Globulin Albumin/Globulin Ratio Lipase Procalcitonin 0.92 H Urine RBC Urine WBC Ur Squamous Epith Cells Urine Bacteria Urine Mucus Ur Culture Indicated? 12/28/19 12/28/19 12/28/19 10:45 11:55 11:55 WBC RBC Hgb Hct MCV MCH MCHC RDW Plt Count Neut % (Auto) Lymph % (Auto) [place] % (Auto) Eos % (Auto) Baso % (Auto) Neut # (Auto) Lymph # (Auto) [place] # (Auto) Eos # (Auto) Baso # (Auto) PT INR APTT D-Dimer Sodium Potassium Chloride Carbon Dioxide BUN Creatinine Estimated GFR BUN/Creatinine Ratio Glucose Hemoglobin A1c Lactate 1.6 Calcium Total Bilirubin AST ALT Alkaline Phosphatase Lactate Dehydrogenase 1326 H Total Creatine Kinase CK-MB (CK-2) CK-MB (CK-2) Rel Index Troponin I Total Protein Albumin Globulin Albumin/Globulin Ratio Lipase Procalcitonin Urine RBC None seen Urine WBC 0-1/hpf Ur Squamous Epith Cells 1-5 /hpf Urine Bacteria Few (2-10) H Urine Mucus 1+ H Ur Culture Indicated? Specimen cultured Assessment & Plan Assessment and plan (1) Hiatal hernia with GERD: Current visit: Yes Status: Acute (2) S/P Estuardo fundoplication (with gastrostomy tube placement): Current visit: Yes Status: Acute (3) Atypical chest pain: Current visit: Yes Status: Acute (4) Acute epigastric pain: Current visit: Yes Status: Acute (5) Acute pancreatitis: Qualifiers: Acute pancreatitis complication: unspecified Pancreatitis type: unspecified pancreatitis type Qualified Code(s): K85.90 - Acute pancreatitis without necrosis or infection, unspecified Current visit: Yes Status: Acute (6) Leukocytosis: Qualifiers: Leukocytosis type: unspecified Qualified Code(s): D72.829 - Elevated white blood cell count, unspecified Current visit: Yes Status: Acute (7) Acute cholecystitis: Current visit: Yes Status: Acute (8) Cholelithiasis: Qualifiers: Biliary obstruction: without biliary obstruction Cholecystitis acuity: acute Cholecystitis presence: with cholecystitis Cholelithiasis location: gallbladder Qualified Code(s): K80.00 - Calculus of gallbladder with acute cholecystitis without obstruction Current visit: Yes Status: Acute Assessment & Plan narrative: 79 yo woman with history of open repair of large PEH with estuardo fundoplication, now admitted with acute gallstone pancreatitis and cholecystitis. 35 minutes were spent face to face with the patient and reviewing hospital records. More than 50% of the time was spent in counseling and co-ordination of care regarding her symptoms, imaging, surgical history, expected hospital course, possible outcomes, risk and benefit of surgery. I explained to the patient that in gallstone pancreatitis, the standard practice is to remove the gallbladder before the patient is discharged from the hospital, as there is high risk of recurrence of pancreatitis within a few weeks after discharge. I have also explained to her that we usually wait until the symptoms have resolved in the labs have begun to resolve before we take out the gallbladder due to a higher risk of complications if we operate during acute pancreatitis. Plan: Preop COVID-19 testing RICCI for possible surgery tomorrow or Thursday NPO except for water and ice chips Antibiotics with gram-negative coverage Ambulate as tolerated Daily labs to include CMP, CBC, and lipase Home meds Pain meds as needed Antiemetics as needed Okay for DVT prophylaxis tonight, hold in a.m. COVID-19 COVID-19 status: Result pending Time Spent With Patient Time with patient: Greater than 35 minutes
[2019-12-28] MEDS: ACETAMINOPHEN 325 MG TABLET 650 MG PO (18:01)
[2019-12-28] MEDS: HEPARIN 5,000 UNIT/ML VIAL 5000 UNIT SUBCUT (20:45)
[2019-12-28] MEDS: CEFOTETAN 2 GM/50 ML PIGGYBACK IV (20:45)
[2019-12-29] VITALS (18 sets, daily range): BP systolic 118–148; BP diastolic 48–66; PULSE 62–79; RESP 10–18; TEMP 35.9–37.3; O2SAT 93–100
--- NOTE | 2019-12-29 | PATH_ITS ---
[facility] Accession Number: [id number] . 01 Material submitted: . gallbladder - GALLBLADDER . 01 Clinical history: . BINDING AROUND RIBS/MID BACK PAIN X1 DAY . 02 Diagnosis: Gallbladder, Cholecystectomy: Cholelithiasis with mild chronic cholecystitis. No evidence of neoplasm. [facility] 01/03/2020 1524 Local . 02 Electronically signed: . Zion Lopez MD, PhD, Pathologist NPI- [id number] . 01 Gross description: . GALLBLADDER: Received in formalin is an unopened gallbladder 6.5 cm in length and 2.8 cm in maximum fundic diameter. The non-hepatic serosa is smooth and shiny. The lumen contains green bile and multiple brown 1.5 CM stones. The mucosa is smooth, shiny, and flat. The wall is 0.1 cm thick. Emergency Preparedness Manager sections are submitted in 2 cassettes. /[facility] 12/30/2019 1400 Local . 02 Pathologist provided ICD-10: K80.60, K81.1 . 02 CPT . 834549 Performed at: 01 [facility] [address] [facility], [place], [place] [id number] MD Álvaro William MD Phone: [phone] Performed at: [facility] [address] [place], [place] [id number] MD Carol Hodgson MD Phone: [phone]
[2019-12-29] MEDS: LACTATED RINGERS 1,000 ML 100 ML IV ×3 (01:22→19:07)
[2019-12-29] MEDS: PANTOPRAZOLE 20 MG TABLET PO (05:04)
[2019-12-29 05:22] LABS: Add Manual Diff / Slide Review NO; Basophils Absolute Auto 0 /uL (0-100); Basophils Percent Auto 0.4 % (0-2); Eosinophils Absolute Auto 100 /uL (0-450); Eosinophils Percent Auto 0.9 % (2-4); Hematocrit 37.8 % (36-46); Hemoglobin 13.1 g/dL (12.0-16.0); Lymphocytes Absolute Auto 800 /uL (1100-4500); Lymphocytes Percent Auto 8.3 % (25-40); Mean Corpuscular HGB Conc 34.6 % (30-36); Mean Corpuscular Hemoglobin 31.3 PG (26-34); Mean Corpuscular Volume 90.6 fL (80-100); Monocytes Absolute Auto 700 /uL (0-900); Monocytes Percent Auto 8.1 % (3-14); Neutrophils Absolute Auto 7600 /uL (1500-7000); Neutrophils Percent Auto 82.3 % (50-75); Platelet Count 179 X10^3/uL (150-400); Red Blood Cell Count 4.17 X10^6/uL (4.0-5.2); Red Cell Distribution Width 13.4 % (11.6-14.8); White Blood Cell Count 9.3 X10^3/uL (4.5-11.0)
[2019-12-29 05:31] LABS: Lipase 1550 U/L (23-300)
[2019-12-29 05:32] LABS: Alanine Aminotransferase 217 IU/L (<35); Albumin 3.3 g/dL (3.5-5.0); Albumin Globulin Ratio 1.2 (1.0-2.8); Alkaline Phosphatase 113 U/L (38-126); Aspartate Aminotransferase 170 IU/L (14-36); BUN Creatinine Ratio 21.3 (6-22); Bilirubin Total 1.9 mg/dL (0.2-1.3); Blood Urea Nitrogen 17 mg/dL (7-17); Calcium 8.7 mg/dL (8.4-10.2); Carbon Dioxide 28 mmol/L (22-32); Chloride 104 mmol/L (98-107); Estimated Glomerular Filt Rate > 60.0 mL/min (>60); Globulin 2.7 g/dL (1.7-4.1); Glucose 131 mg/dL (80-110); HEMOLYSIS < 15 (0-50); Potassium 3.7 mmol/L (3.4-5.1); Sodium 135 mmol/L (137-145)
[2019-12-29 05:50] LABS: Procalcitonin 1.13 ng/mL (<0.5)
[2019-12-29] MEDS: metroNIDAZOLE 500 MG/100 ML PIGGYBACK 100 MG IV ×3 (06:41→22:25)
[2019-12-29] MEDS: SUCRALFATE 1 GM/10 ML ORAL SUSP PO (06:41)
[2019-12-29] MEDS: CEFOTETAN 2 GM/50 ML PIGGYBACK IV ×2 (08:37→21:16)
[2019-12-29] MEDS: OXYBUTYNIN 5 MG TABLET PO (08:37)
[2019-12-29] MEDS: estradioL 0.5 MG TABLET PO (08:37)
[2019-12-29] MEDS: SIMVASTATIN 10 MG TABLET PO (08:37)
--- NOTE | 2019-12-29 10:00 | PC.NURSE ---
Addendum entered by Milka Leonard R.N. 12/29/19 11:53: Covid 19 status is negative. Pt still in NPO excepr fir ice chips and water. Pt denies any pain or any discomfort at this time. Original Note: Patient in bed watching TV beginning of shift. Alert and oriented x4. 100% O2 sat RA. Denies any pain or any discomofort. MD came in to check pt and discussed planned surgery this afternoon pending covid 19 result. Pt is NPO except ice and water. Took all due meds this AM. Pt still in ABX IV Cefotan and Flagyl. Held DVT prophylaxis this AM per MD's order.Pt's IV right AC intact LR runnning 100 mls/hr
[2019-12-29 10:38] LABS: COVID19 -Nasal RAPID Negative (Negative)
--- NOTE | 2019-12-29 11:16 | PM.PN.1 ---
Subjective Subjective Date Patient Seen: 12/29/19 Interval history: Patient is 79-year-old female who is admitted due to gallstone pancreatitis and cholecystitis. Patient is not having significant abdominal pain. No nausea or vomiting. Exam Vital Signs (past 8 hours): - 12/29/19 05:00 12/29/19 08:00 12/29/19 09:00 Temperature 97.8 F 97.9 F Pulse Rate 67 64 Respiratory Rate 18 18 Blood Pressure 124/60 148/66 H Pulse Oximetry 97 96 100 Oxygen Delivery Method Room Air Oxygen Flow Rate 0 Narrative Exam Narrative: General: Alert, pleasant and in no acute distress Lungs: Clear to auscultation Heart: Regular rhythm Abdomen: Nondistended, soft and nontender Extremities: No edema Neurological: Sensorium intact Objective Labs Result Diagrams: 12/29/19 05:00 12/29/19 05:00 Labs: Laboratory Results - last 24 hr 12/28/19 12/28/19 12/28/19 09:24 09:24 10:45 WBC RBC Hgb Hct MCV MCH MCHC RDW Plt Count Neut % (Auto) Lymph % (Auto) [place] % (Auto) Eos % (Auto) Baso % (Auto) Neut # (Auto) Lymph # (Auto) [place] # (Auto) Eos # (Auto) Baso # (Auto) Sodium Potassium Chloride Carbon Dioxide BUN Creatinine Estimated GFR BUN/Creatinine Ratio Glucose Hemoglobin A1c 7.4 H Lactate Calcium Total Bilirubin AST ALT Alkaline Phosphatase Lactate Dehydrogenase Total Protein Albumin Globulin Albumin/Globulin Ratio Lipase Procalcitonin 0.92 H Urine RBC None seen Urine WBC 0-1/hpf Ur Squamous Epith Cells 1-5 /hpf Urine Bacteria Few (2-10) H Urine Mucus 1+ H Ur Culture Indicated? Specimen cultured COVID-19 PCR 12/28/19 12/28/19 12/28/19 11:55 11:55 16:55 WBC RBC Hgb Hct MCV MCH MCHC RDW Plt Count Neut % (Auto) Lymph % (Auto) [place] % (Auto) Eos % (Auto) Baso % (Auto) Neut # (Auto) Lymph # (Auto) [place] # (Auto) Eos # (Auto) Baso # (Auto) Sodium Potassium Chloride Carbon Dioxide BUN Creatinine Estimated GFR BUN/Creatinine Ratio Glucose Hemoglobin A1c Lactate 1.6 Calcium Total Bilirubin AST ALT Alkaline Phosphatase Lactate Dehydrogenase 1326 H Total Protein Albumin Globulin Albumin/Globulin Ratio Lipase Procalcitonin Urine RBC Urine WBC Ur Squamous Epith Cells Urine Bacteria Urine Mucus Ur Culture Indicated? COVID-19 PCR Cancelled 12/28/19 12/29/19 12/29/19 16:55 05:00 05:00 WBC RBC Hgb Hct MCV MCH MCHC RDW Plt Count Neut % (Auto) Lymph % (Auto) [place] % (Auto) Eos % (Auto) Baso % (Auto) Neut # (Auto) Lymph # (Auto) [place] # (Auto) Eos # (Auto) Baso # (Auto) Sodium Potassium Chloride Carbon Dioxide BUN Creatinine Estimated GFR BUN/Creatinine Ratio Glucose Hemoglobin A1c Lactate Calcium Total Bilirubin AST ALT Alkaline Phosphatase Lactate Dehydrogenase Total Protein Albumin Globulin Albumin/Globulin Ratio Lipase 1550 H Procalcitonin 1.13 H Urine RBC Urine WBC Ur Squamous Epith Cells Urine Bacteria Urine Mucus Ur Culture Indicated? COVID-19 PCR Negative 12/29/19 12/29/19 05:00 05:00 WBC 9.3 RBC 4.17 Hgb 13.1 Hct 37.8 MCV 90.6 MCH 31.3 MCHC 34.6 RDW 13.4 Plt Count 179 Neut % (Auto) 82.3 H Lymph % (Auto) 8.3 L [place] % (Auto) 8.1 Eos % (Auto) 0.9 L Baso % (Auto) 0.4 Neut # (Auto) 7600 H Lymph # (Auto) 800 L [place] # (Auto) 700 Eos # (Auto) 100 Baso # (Auto) 0 Sodium 135 L Potassium 3.7 Chloride 104 Carbon Dioxide 28 BUN 17 Creatinine 0.80 Estimated GFR > 60.0 BUN/Creatinine Ratio 21.3 Glucose 131 H Hemoglobin A1c Lactate Calcium 8.7 Total Bilirubin 1.9 H AST 170 H ALT 217 H Alkaline Phosphatase 113 Lactate Dehydrogenase Total Protein 6.0 L Albumin 3.3 L Globulin 2.7 Albumin/Globulin Ratio 1.2 Lipase Procalcitonin Urine RBC Urine WBC Ur Squamous Epith Cells Urine Bacteria Urine Mucus Ur Culture Indicated? COVID-19 PCR Assessment & Plan Assessment & Plan narrative: Patient is 79-year-old female admitted with acute gallstone pancreatitis and cholecystitis. 1. Acute gallstone cholecystitis, present on admission, active -patient with gallstones and pericholecystic fluid on ultrasound and CT, without GB wall thickening -symptoms improving, WBC declining, procalcitonin about the same -afebrile with stable vitals, normal lactic acid -on bowel rest, IV antibiotics -Cefotetan 2 g IV Q 12 hours and metronidazole 500 mg IV q.8 hours for antibiotic management -LR 100 cc/hour -morphine IV as needed for moderate severe pain, Zofran IV as needed for nausea/vomiting -surgical consult, Dr. Le -patient without history of cardiac disease, troponin is normal, and she is at low risk for surgery -scheduled for laparoscopic cholecystectomy later today 2. Acute gallstone pancreatitis, present on admission, active -presented with upper abdominal pain radiating to back, lipase 2786, elevated bilirubin, alk-phos and LFTs consistent with gallstone pancreatitis -LFTs and lipase decreasing -no pancreatic fluid or inflammation on CT -managed with bowel rest and IV fluids and pain control 3. Type 2 diabetes, new diagnosis -patient reports history of borderline diabetes without previous diabetes diagnosis -glucose 221, hemoglobin A1c 7.4 confirmatory of type 2 diabetes -provide sliding scale insulin -patient counseled briefly on diet and increasing level of activity and possibly starting on oral medication through her PCP -continue simvastatin 10 mg q.d. per home routine Admit status: Inpatient DVT prophylaxis: Enoxaparin Code status: Full code
--- NOTE | 2019-12-29 14:36 | CM.IDA ---
Initial DCP Assessment Note: Patient is an 79 yo female, resident of [place]. Patient presents w/acute gallstone cholecystitis, going to surgery this evening for lap moy. PCP: Martin Ricketts Payer: [employer] Reviewed chart. Met w/patient to introduce role. Patient is eagerly awaiting surgery this evening, states she is typically quite healthy, active and indp and is confident that her can take care of her upon medical DC. 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 OLEKSANDR Riddle Discharge Planning/Care Management CM Discharge Assessment Start: 12/29/19 14:33 Freq: Status: Active Protocol: Document 12/29/19 14:33 JOSE (Rec: 12/29/19 14:36 JOSE [id number]) Discharge Planning Assessment Assigned Director Of Partner Marketing OLEKSANDR Urena DPOA/Assigned Designee Name Filiberto Kenny, spouse Contact Information [phone] Advance Directives? Yes History Provided By Patient Prior Living Arrangements Apartment/Condo Household Members spouse Type of transporation used prior to Drives own vehicle admit Independent with ADL's Yes Is patient alert and oriented? Yes Barriers to Discharge No Discharge Plan Home Transportation Arrangement Spouse Referrals Initiated None needed
[2019-12-29 14:39] LABS: Acinetobacter baumannii Not Detected (Not Detect); E. coli Not Detected (Not Detect); Enterobacter cloacae complex Not Detected (Not Detect); Enterobacteriaceae species Not Detected (Not Detect); Enterococcus species Not Detected (Not Detect); Listeria monocytogenes Not Detected (Not Detect); Methicillin-resistant gene Not Detected (Not Detect); Streptococcus agalactiae (Gr B Not Detected (Not Detect); Streptococcus pneumonia Not Detected (Not Detect); Streptococcus pyogenes (Gr A) Not Detected (Not Detect); Streptococcus species Not Detected (Not Detect)
[2019-12-29 14:40] LABS: Candida albicans Not Detected (Not Detect); Candida glabrata Not Detected (Not Detect); Candida krusei Not Detected (Not Detect); Candida parapsilosis Not Detected (Not Detect); Candida tropicalis Not Detected (Not Detect); Haemophilus influenzae Not Detected (Not Detect); Neisseria meningitidis Not Detected (Not Detect); Proteus species Not Detected (Not Detect); Pseudomonas aeruginosa Not Detected (Not Detect); Serratia marcescens Not Detected (Not Detect); Staphylococcus species Detected (Not Detect)
--- NOTE | 2019-12-29 15:04 | SUR.HOLD ---
Patient to Pre-op from inpatient room 223. VSS. GCS 15; Patient denies pain.
[2019-12-29] MEDS: LACTATED RINGERS 1,000 ML 42 ML IV (15:15)
--- NOTE | 2019-12-29 16:29 | SUR.OPER ---
Supine on padded OR bed, head on pillow, arms secured on padded arm boards at <90 degrees abduction, legs uncrossed, safety belt at thigh, tape over blanket over lower legs.
[2019-12-29] MEDS: BUPIVACAINE 0.25% W/ EPI 30 ML VIAL 60 ML INJ (17:31)
--- NOTE | 2019-12-29 18:02 | PM.OP.1 ---
Operative Date/Time/Diagnoses Date of procedure: 12/29/19 Time of procedure: 18:02 Pre-op diagnosis: gallstone pancreatitis; cholecystitis Post-op diagnosis: same Procedure & Clinicians Procedure: laparoscopic cholecystectomy with fluorescene cholangiography Same procedure as scheduled: Yes Indications: Acute cholecystitis; gallstone pancreatitis Surgeon: Sallie Barrera Click Yes if Unassisted: Yes Anesthesia Type: General Operative Notes Findings: thickened gall bladder; adhesions Specimen(s): other (gall bladder) Estimated Blood Loss (mL): 5 Blood products transfused: none Procedure in detail: The patient was brought into the operating room and placed supine on the OR table. Sequential compression devices were placed on both legs and turned on. Appropriate perioperative antibiotics were given prior to the start of surgery. General anesthesia was induced the patient was intubated. The abdomen was prepped and draped in sterile fashion. Surgical time-out was conducted. Local anesthetic was injected under the skin just inferior to the umbilicus and a 5 mm vertical incision was made at this site. The umbilical stalk was grasped with a Karrie and elevated. A Veress needle was passed through the fascia into proper position. The position was tested with a saline drop test which was appropriate for intra-abdominal Veress needle placement. The abdomen was then insufflated in the usual fashion. Once insufflated to 15 mm Hg the Veress needle was removed and a 5 mm optical trocar was placed under direct vision using a 5 mm 30 degree scope. Once the camera was inside the abdomen I took a look around. There was no injury from port placement. Two additional ports were placed in a similar fashion in the right upper quadrant and a 10 mm port was placed in the epigastrium. Through the 2 lateral ports the gallbladder was grasped and elevated and the infundibulum was retracted laterally to the patient's right. There were dense adhesions of omentum stuck to the liver and gallbladder. These adhesions were gradually taken down using [place] and L hook cautery. I was then able to retract the gallbladder cranially and laterally to the patient's right. This exposed the gallbladder hilum and allowed for dissection of the cystic duct and cystic artery. There was quite a bit of dense inflammatory, and well vascularized scar tissue throughout the gallbladder hilum. The gallbladder was densely adherent to the liver, and some bleeding occurred on the liver surface when the gallbladder was retracted. These inflammatory adhesions required tedious careful dissection to avoid injury to the bile ducts. Indocyanine green was given to the patient 45 minutes prior to surgery. At this point the operation I was able to turn on the floor seen lamp and view the gallbladder and bile ducts lighting up green. The cystic duct was folded on itself, and I went back to regular view mode and carefully dissected some fibrous adhesions off of the duct in order to straighten it out. I looked again with the fluorescein light and was able to see the cystic duct anteriorly and the cystic artery just posterior to it, in the normal position. Once the cystic duct and artery were completely dissected out and I was able to see liver behind and between both structures without any other structures in the way, giving us the critical view of safety. At this point I doubly clipped both structures on the patient's side and put a single clip on the gallbladder side of both the cystic duct and artery. Both structures were then divided with laparoscopic Stiven. Following this the gallbladder was gradually dissected free from the liver. There was quite a bit of hypervascularity of the scar tissue between the gallbladder and the liver. Several small vessels had to be controlled with cautery. Once the gallbladder was entirely freed, it was placed inside an Endo-Catch bag and removed through the epigastric port site. I [did] have to enlarge the epigastric site in order to get the gallbladder out. Once it was out and passed off to the back table I then took another look inside the abdomen. I suctioned clean any remaining blood or fluid on the lateral side of the liver and in the subhepatic space. There was some raw surface bleeding from the liver in the gallbladder fossa. I cauterized this with the L hook, and there was no further bleeding. At this point there was no active bleeding or leaking of bile from the gallbladder fossa or from the clipped stumps of the cystic duct and artery. The epigastric port site was closed with 0 Vicryl suture in the fascia using the Damian Raman device, 3 O Vicryl in the subcutaneous layers, and 4 Monocryl in the skin. The remaining port sites were closed with 4 Monocryl in the skin. The epigastric port site was sealed with Steri-Strips, 2 x 2 and Tegaderm. Each of the other port sites were sealed with Dermabond. Local anesthetic was given at each of the port sites and in the fascia. This concluded the procedure. At this point the needle sponge and instrument counts were correct. The gallbladder was passed off the table for pathology. Patient was awakened from anesthesia and extubated. She was transferred to the postanesthesia care unit in stable condition. Complications: none Post-operative Condition: stable Disposition: PACU
--- NOTE | 2019-12-29 18:12 | SUR.PHASEI ---
Chin support needed initiallStable PACU stay, taking ice ships well, report attempted, RN unavailable. RITIKA Aguilar to call back.
--- NOTE | 2019-12-29 18:16 | SUR.PHASEI ---
Raisa returned call, report given.
--- NOTE | 2019-12-29 18:40 | SUR.PHASEI ---
Pt transported up to room 223 on 2/l nasal cannula. Left with RITIKA Aguilar in stable condition.
[2019-12-29] MEDS: MORPHINE 2 MG/ML INJ IV ×2 (19:06→22:57)
[2019-12-29] MEDS: ACETAMINOPHEN 325 MG TABLET 650 MG PO (21:25)
[2019-12-30] VITALS (11 sets, daily range): BP systolic 128–160; BP diastolic 62–86; PULSE 61–71; RESP 16–18; TEMP 36.3–37.1; O2SAT 94–98
--- NOTE | 2019-12-30 01:10 | PC.NURSE ---
Addendum entered by Leidy Garcia R.N. 12/30/19 05:54: Per BUSINESS EDUCATION TEACHER patient to return to [facility] CBG checks and sliding scale. Original Note: Patient is AxOx3, can make needs known. Titrated supplemental oxygen down from 2L to 1L for trial. Diminished breath sounds in bases r/t pain with inspiration, otherwise clear. Educated patient on need for deep breathing and the use of splinting to assist in pain management. Abdomen is slightly distended and tender to palpation. Hypoactive bowel tones, denies passing flatus since surgery. Patient reported she does not routinely pass gas. Proximal lap site covered with gauze and tegaderm, other 3 MAY with dermabond. 3 circular rashes on upper chest from tele stickers. Pain reported in upper right quadrant near ribs, medicated per MAR. Has not been OOB since surgery. Moderate fall risk, bed alarm on and functioning, call light in reach.
[2019-12-30] MEDS: MORPHINE 2 MG/ML INJ IV ×2 (04:57→09:45)
[2019-12-30] MEDS: PANTOPRAZOLE 20 MG TABLET PO (06:04)
[2019-12-30] MEDS: LACTATED RINGERS 1,000 ML 100 ML IV (06:05)
[2019-12-30] MEDS: metroNIDAZOLE 500 MG/100 ML PIGGYBACK 100 MG IV ×3 (06:05→22:40)
[2019-12-30] MEDS: CEFOTETAN 2 GM/50 ML PIGGYBACK IV ×2 (09:10→20:26)
[2019-12-30] MEDS: SIMVASTATIN 10 MG TABLET PO (09:11)
[2019-12-30] MEDS: HEPARIN 5,000 UNIT/ML VIAL 5000 UNIT SUBCUT ×2 (09:11→20:26)
[2019-12-30] MEDS: estradioL 0.5 MG TABLET PO (09:11)
[2019-12-30] MEDS: OXYBUTYNIN 5 MG TABLET PO (09:11)
[2019-12-30 09:54] LABS: Add Manual Diff / Slide Review NO; Basophils Absolute Auto 100 /uL (0-100); Basophils Percent Auto 0.5 % (0-2); Eosinophils Absolute Auto 100 /uL (0-450); Eosinophils Percent Auto 1.1 % (2-4); Hematocrit 37.2 % (36-46); Hemoglobin 12.8 g/dL (12.0-16.0); Lymphocytes Absolute Auto 900 /uL (1100-4500); Lymphocytes Percent Auto 8.9 % (25-40); Mean Corpuscular HGB Conc 34.4 % (30-36); Mean Corpuscular Hemoglobin 31.5 PG (26-34); Mean Corpuscular Volume 91.7 fL (80-100); Monocytes Absolute Auto 1100 /uL (0-900); Monocytes Percent Auto 10.1 % (3-14); Neutrophils Absolute Auto 8400 /uL (1500-7000); Neutrophils Percent Auto 79.4 % (50-75); Platelet Count 175 X10^3/uL (150-400); Red Blood Cell Count 4.06 X10^6/uL (4.0-5.2); Red Cell Distribution Width 13.3 % (11.6-14.8); White Blood Cell Count 10.6 X10^3/uL (4.5-11.0)
[2019-12-30 10:14] LABS: Alanine Aminotransferase 138 IU/L (<35); Albumin 3.2 g/dL (3.5-5.0); Albumin Globulin Ratio 1.1 (1.0-2.8); Alkaline Phosphatase 115 U/L (38-126); Aspartate Aminotransferase 93 IU/L (14-36); BUN Creatinine Ratio 18.8 (6-22); Bilirubin Total 0.7 mg/dL (0.2-1.3); Blood Urea Nitrogen 13 mg/dL (7-17); Calcium 8.4 mg/dL (8.4-10.2); Carbon Dioxide 25 mmol/L (22-32); Chloride 101 mmol/L (98-107); Estimated Glomerular Filt Rate > 60.0 mL/min (>60); Globulin 2.8 g/dL (1.7-4.1); Glucose 249 mg/dL (80-110); HEMOLYSIS < 15 (0-50); Potassium 3.7 mmol/L (3.4-5.1); Sodium 132 mmol/L (137-145)
--- NOTE | 2019-12-30 10:40 | PM.PN.1 ---
Subjective Subjective Date Patient Seen: 12/30/19 Time Patient Seen: 10:40 Interval history: No acute events overnight. Pt says she has a hard time taking a deep breath. Denies nausea. Says she would like to eat. Exam Vital Signs (past 8 hours): - 12/30/19 04:25 12/30/19 05:00 12/30/19 07:23 Temperature 97.6 F 98.5 F Pulse Rate 61 61 Respiratory Rate 16 16 Blood Pressure 129/62 136/64 Pulse Oximetry 97 96 95 12/30/19 08:00 Temperature Pulse Rate Respiratory Rate Blood Pressure Pulse Oximetry 96 Oxygen Delivery Method Room Air Oxygen Flow Rate 0 Narrative Exam Narrative: General: Alert, oriented, comfortable Pulmonary: Breathing comfortably on room air, non tachypneic Abdomen: Soft, appropriate tenderness to palpation, incisions and dressings clean dry and intact Objective Labs Result Diagrams: 12/30/19 09:47 12/30/19 09:47 Labs: Laboratory Results - last 24 hr 12/28/19 12/30/19 12/30/19 12:46 09:47 09:47 WBC 10.6 RBC 4.06 Hgb 12.8 Hct 37.2 MCV 91.7 MCH 31.5 MCHC 34.4 RDW 13.3 Plt Count 175 Neut % (Auto) 79.4 H Lymph % (Auto) 8.9 L Carbon % (Auto) 10.1 Eos % (Auto) 1.1 L Baso % (Auto) 0.5 Neut # (Auto) 8400 H Lymph # (Auto) 900 L Carbon # (Auto) 1100 H Eos # (Auto) 100 Baso # (Auto) 100 Sodium 132 L Potassium 3.7 Chloride 101 Carbon Dioxide 25 BUN 13 Creatinine 0.69 Estimated GFR > 60.0 BUN/Creatinine Ratio 18.8 Glucose 249 H D Calcium 8.4 Total Bilirubin 0.7 AST 93 H ALT 138 H Alkaline Phosphatase 115 Total Protein 6.0 L Albumin 3.2 L Globulin 2.8 Albumin/Globulin Ratio 1.1 A. baumannii (PCR) Not detected Gregoria albicans (PCR) Not detected C. glabrata (PCR) Not detected C. krusei (PCR) Not detected C. parapsilosis (PCR) Not detected C. tropicalis (PCR) Not detected Enterobacteriac sp PCR Not detected E. cloacae complex PCR Not detected Enterococcus sp PCR Not detected E. coli (PCR) Not detected H. influenzae (PCR) Not detected Klebsiella oxytoca PCR Not detected Klebsiella pneumoniae Not detected List. monocytogenes PCR Not detected N. meningitidis (PCR) Not detected Proteus species (PCR) Not detected Serratia marcescens PCR Not detected Staphylococcus sp PCR Detected H Staph aureus (PCR) Not detected mecA-Methicil Res Gene Not detected Streptococcus sp PCR Not detected Group A Strep (PCR) Not detected Strep agalactiae (PCR) Not detected Strep pneumoniae (PCR) Not detected P. aeruginosa (PCR) Not detected Josefa/B-Vanco Res Genes Not Reportable KPC-Carbap Res Gene PCR Not Reportable Assessment & Plan Assessment and plan (1) Acute cholecystitis: Current visit: Yes Status: Acute (2) Acute pancreatitis: Qualifiers: Acute pancreatitis complication: unspecified Pancreatitis type: unspecified pancreatitis type Qualified Code(s): K85.90 - Acute pancreatitis without necrosis or infection, unspecified Current visit: Yes Status: Acute Assessment & Plan narrative: 79-year-old woman postop day 1 status post laparoscopic cholecystectomy for acute cholecystitis and gallstone pancreatitis. Labs look very good, consistent with resolving cholecystitis and pancreatitis, and non obstruction of the bile duct. Okay to advance patient to low-fat diet as tolerated. Encouraged patient to get up and ambulate, and to take deep breaths. Plan: Advanced diet as tolerated Incentive spirometer Pain control p.o. pain med Dispo planning when patient is able to manage her pain and able to eat well enough to go home Encourage ambulation COVID-19 COVID-19 status: Negative Time Spent With Patient Time with patient: 15-24 minutes Quality VTE Deep Vein Thrombosis/Pulmonary Embolism Present on Admission: No
[2019-12-30] MEDS: DOCUSATE 100 MG CAPSULE PO ×2 (11:13→20:27)
[2019-12-30 11:22] LABS: Lipase 403 U/L (23-300)
[2019-12-30] MEDS: INSULIN ASPART 100 UNIT/ML INSULN PEN SUBCUT ×3 (11:59→20:40)
[2019-12-30] MEDS: ACETAMINOPHEN 325 MG TABLET 650 MG PO ×2 (14:41→20:41)
--- NOTE | 2019-12-30 15:58 | PM.PN.1 ---
Subjective Subjective Date Patient Seen: 12/30/19 Interval history: Patient is 79-year-old female who is admitted due to gallstone pancreatitis and cholecystitis. She is postop day 1 Laparoscopic cholecystectomy. Patient complaining of right pleuritic pain which is expected after lap choly. She is tolerating clear liquid diet. Exam Vital Signs (past 8 hours): - 12/30/19 08:00 12/30/19 11:15 12/30/19 11:49 Temperature 98.8 F Pulse Rate 63 Respiratory Rate 16 Blood Pressure 128/86 Pulse Oximetry 96 94 96 Oxygen Delivery Method Room Air Oxygen Flow Rate 0 Narrative Exam Narrative: General: Alert, pleasant and in no acute distress Lungs: Clear to auscultation Heart: Regular rhythm Abdomen: Nondistended, soft and nontender Extremities: No edema Neurological: Sensorium intact Objective Labs Result Diagrams: 12/30/19 09:47 12/30/19 09:47 Labs: Laboratory Results - last 24 hr 12/30/19 12/30/19 12/30/19 09:47 09:47 09:47 WBC 10.6 RBC 4.06 Hgb 12.8 Hct 37.2 MCV 91.7 MCH 31.5 MCHC 34.4 RDW 13.3 Plt Count 175 Neut % (Auto) 79.4 H Lymph % (Auto) 8.9 L [place] % (Auto) 10.1 Eos % (Auto) 1.1 L Baso % (Auto) 0.5 Neut # (Auto) 8400 H Lymph # (Auto) 900 L [place] # (Auto) 1100 H Eos # (Auto) 100 Baso # (Auto) 100 Sodium 132 L Potassium 3.7 Chloride 101 Carbon Dioxide 25 BUN 13 Creatinine 0.69 Estimated GFR > 60.0 BUN/Creatinine Ratio 18.8 Glucose 249 H D Calcium 8.4 Total Bilirubin 0.7 AST 93 H ALT 138 H Alkaline Phosphatase 115 Total Protein 6.0 L Albumin 3.2 L Globulin 2.8 Albumin/Globulin Ratio 1.1 Lipase 403 H D Assessment & Plan Assessment & Plan narrative: Patient is 79-year-old female admitted with acute gallstone pancreatitis and cholecystitis. 1. Acute gallstone cholecystitis, present on admission, active -status post lap choly on 12/29/[address] Le -patient with gallstones and pericholecystic fluid on ultrasound and CT, without GB wall thickening -afebrile with stable vitals -advanced diet as tolerated -Cefotetan 2 g IV Q 12 hours and metronidazole 500 mg IV q.8 hours for antibiotic management -DC IV fluids -can likely discharged on oral antibiotics tomorrow Thursday 2. Acute gallstone pancreatitis, present on admission, resolved -presented with upper abdominal pain radiating to back, lipase 2786, elevated bilirubin, alk-phos and LFTs consistent with gallstone pancreatitis -LFTs and lipase decreasing -no pancreatic fluid or inflammation on CT 3. Type 2 diabetes, new diagnosis -patient reports history of borderline diabetes without previous diabetes diagnosis -glucose running high postop, hemoglobin A1c 7.4 confirmatory of type 2 diabetes -provide sliding scale insulin -patient counseled briefly on diet and increasing level of activity and possibly starting on oral medication through her PCP -continue simvastatin 10 mg q.d. per home routine Quality VTE Deep Vein Thrombosis/Pulmonary Embolism Present on Admission: No
--- NOTE | 2019-12-30 21:54 | PC.NURSE ---
Pt is A and O x 4, VSS. Rates pain 4/10 taking APAP only. Able to eat and sleep. Using BR, walks independently. Lap sites C/D/I. Voiding qs, clear yellow. +BTs.
[2019-12-31] VITALS: BP 153/58; PULSE 66; RESP 16; TEMP 36.1; O2SAT 94
[2019-12-31] MEDS: ACETAMINOPHEN 325 MG TABLET 650 MG PO ×2 (02:50→08:23)
--- NOTE | 2019-12-31 02:56 | PC.NURSE ---
Addendum entered by Dilcia Barron R.N. 12/31/19 06:21: Patient using I.S. and has been able to get up to 1250. States she has started passing flatus this morning. Original Note: Patient initially seen and assessed at 0020. Is alert and oriented. Breath sounds with inspiratory crackles bilateral bases and RA sat of 94%. Respirations more shallow and patient stated it hurts to breathe but refusing to take any pain medications other than Tylenol. Educated on importance of pain control to allow for deep breathing in order to prevent post op complications but continues to refuse other pain medication and too early to give additional Tylenol at that time but now awake and medicated with Tylenol. Provided with incentive spirometer and instructed in use. HRR. BP elevated at 153/58. Denies nausea. BT present but denies having passed flatus. Able to turn self in bed and is getting up to bathroom with SBA. Denies any dysuria, frequency or urgency. Dressing to mid upper abdomen is CDI; other lap sites are dermabonded and have no redness. Wearing bilateral calf SCD's. Fall risk score is moderate; bed alarm is activated.
[2019-12-31 03:00] VITALS: BP 167/73; PULSE 65; RESP 16; TEMP 36.8; O2SAT 94
[2019-12-31] MEDS: SODIUM CHLORIDE 0.9% FLUSH 10 ML IV ×2 (06:10→08:17)
[2019-12-31] MEDS: metroNIDAZOLE 500 MG/100 ML PIGGYBACK 100 MG IV (06:10)
[2019-12-31] MEDS: PANTOPRAZOLE 20 MG TABLET PO (06:11)
[2019-12-31 07:44] VITALS: BP 175/71; PULSE 62; RESP 16; TEMP 36.3; O2SAT 95
[2019-12-31 08:05] VITALS: O2SAT 97
[2019-12-31] MEDS: INSULIN ASPART 100 UNIT/ML INSULN PEN SUBCUT ×2 (08:14→12:43)
[2019-12-31] MEDS: OXYBUTYNIN 5 MG TABLET PO (08:15)
[2019-12-31] MEDS: estradioL 0.5 MG TABLET PO (08:15)
[2019-12-31] MEDS: SIMVASTATIN 10 MG TABLET PO (08:17)
[2019-12-31] MEDS: HEPARIN 5,000 UNIT/ML VIAL 5000 UNIT SUBCUT (08:17)
[2019-12-31] MEDS: CEFOTETAN 2 GM/50 ML PIGGYBACK IV (08:18)
[2019-12-31] MEDS: DOCUSATE 100 MG CAPSULE PO (08:23)
--- NOTE | 2019-12-31 10:12 | DI.RAD.S_ITS ---
PROCEDURE: XR CHEST 1V INDICATIONS: shortness of breath TECHNIQUE: One view of the chest was acquired. COMPARISON: None. FINDINGS: Surgical changes and devices: None. Lungs and pleura: Lungs are clear. No pleural effusions or pneumothorax. Mediastinum: Mediastinal contours appear normal. Heart size is normal. Bones and chest wall: No suspicious bony lesions. Overlying soft tissues appear unremarkable. IMPRESSION: No evidence acute pulmonary process. Dictated by: Dc Velazquez M.D. on 12/31/2019 at 10:01 Approved by: Dc Velazquez M.D. on 12/31/2019 at 10:02
[2019-12-31 11:35] VITALS: BP 149/74; PULSE 66; RESP 18; TEMP 36.2; O2SAT 96
[2019-12-31 12:34] VITALS: O2SAT 96
--- NOTE | 2019-12-31 13:27 | P.DS_ITS ---
History of Present Illness History of Present Illness Date Patient Seen: 12/31/19 Chief complaint: binding around ribs/mid back pain x1 day Narrative: Patient is an 79-year-old female with history of obesity, borderline diabetes, GERD, history of Estuardo fundoplication who presents to ER due to ongoing severe abdominal and back pain. She had acute onset of discomfort last night. She describes location as in the abdomen, around the ribs, and radiating to the mid back. She had nausea and threw up once this morning. The pain reminded her of her reflux prior to her Estuardo procedure although she has not had any reflux symptoms since her surgery at [facility] 4 years ago. She had some chills without known fever. Last bowel movement was this morning. She last ate anything yesterday evening. ER workup included CT which showed gallstones without gallbladder wall thickening and minimal fluid around the gallbladder. Also hepatic steatosis. Abdominal ultrasound indicated pain over the gallbladder, mild pericholecystic fluid, gallstones without gallbladder wall thickening. The common bile duct was normal at 5.6 mm. Indicated elevated WBC 17.2 with left shift, glucose 221, bilirubin 3.2, AST 501, ALT 268, alk-phos 142, creatinine 0.72, normal lytes. Her lipase was elevated at 2786. Procalcitonin was elevated at 0.92. Discharge Providers Provider Date of admission: 12/28/19 11:53 Discharge Date: 12/31/19 Primary care physician: Martin Ricketts MD Discharge provider: Zuleima Bender MD Summary Hospital Course Discharge Diagnosis: 1. Gallstone pancreatitis 2. Acute cholecystitis 3. Status post laparoscopic cholecystectomy 4. Type 2 diabetes 5. Hypertension 6. GERD Hospital Course: Patient was admitted to the hospital for gallstone pancreatitis. Abdominal ultrasound and abdominal CT confirmed diagnosis. The patient recovered from her pancreatitis quite quickly and was taken to the ope rating room for laparoscopic cholecystectomy. Patient tolerated procedure without difficulty. She was treated empirically with antibiotics prior to her procedure. Her diet was advanced post procedure. The patient did have some pain in the right upper quadrant postoperatively. That resulted in some difficulty with breathing. However she was not hypoxic. And chest x-ray confirmed no evidence of heart failure or pneumonia. Patient was told she is a borderline diabetic. Her hemoglobin A1c was 7.4. In addition the patient's blood pressure was elevated during her hospital stay. In discussing with the patient she typically has normal blood pressure at home although it is unclear how often she is taking. We discussed the possibility of initiating treatment for her diabetes here in the hospital in addition to treatment for her blood pressure. The patient will follow-up with Dr. Ricketts as an outpatient. However she requests to initiate therapy here in the hospital. The patient was instructed to take her blood pressure at home. She will follow-up with Dr. Ricketts regarding her blood pressure. Patient will receive diabetic Education here in the hospital. Will arrange for her to get a glucometer Chemstrips as well. She will be started on metformin at 500 mg per day. In addition lisinopril at 5 mg per day will be initiated as well. The patient was able to tolerate her diet. She has improved significantly. She was deemed appropriate for discharge home. Status at Discharge Cognitive/behavioral status at discharge: oriented Functional status at discharge: independent ambulation Overall status at discharge: patient is back to baseline Time Spent with Patient Time spent: Less than 30 minutes Exam Vital Signs (past 8 hours): - 12/31/19 07:44 12/31/19 08:05 12/31/19 11:35 Temperature 97.4 F L 97.2 F L Pulse Rate 62 66 Respiratory Rate 16 18 Blood Pressure 175/71 H 149/74 H Pulse Oximetry 95 97 96 12/31/19 12:34 Temperature Pulse Rate Respiratory Rate Blood Pressure Pulse Oximetry 96 Oxygen Delivery Method Room Air Oxygen Flow Rate 0 Narrative Exam Narrative: Pleasant female resting comfortably in no obvious distress Lungs: Clear to auscultation, with occasional right basilar crackles Cardiac exam: Regular rate and rhythm normal S1-S2 Abdomen: Soft, mildly tender in the right upper quadrant, no rebound tenderness no board-like rigidity, no palpable mass Extremities: No edema Objective Labs Result Diagrams: 12/30/19 09:47 12/30/19 09:47 Discharge Plan Discharge Plan Patient Disposition: Home Discharge comment: follow up with Dr. Ricketts next week Follow up with Dr. Le in 2 weeks Discharge orders & Medications Prescriptions: New metformin 500 mg tablet extended release 24hr 500 mg PO DAILY Qty: 30 RF: 0 lisinopril 5 mg tablet 5 mg PO DAILY Qty: 30 RF: 0 Continued oxybutynin chloride 5 mg tablet 5 mg PO DAILY RF: 0 simvastatin 10 mg tablet 10 mg PO DAILY RF: 0 estradiol 0.5 mg tablet 0.5 mg PO DAILY RF: 0 omeprazole 20 mg capsule,delayed release(DR/EC) 20 mg PO DAILY RF: 0 Follow up/Referrals: Martin Ricketts MD [Primary Care Provider] - Sallie Barrera MD [Physician] - (Call on Thursday to make a follow up appointment to see Dr. Barrera in 1-2 weeks. ) Diet/Activity/Treatments Diet: Diet as Tolerated and Low-fat Activity: Avoid lifting, pushing, or pulling more than 10 lbs for four weeks after surgery. Keep active with taking walks and doing light activities as tolerated. Avoid being sedentary or staying in the bed more than usual. Skin/Wound/Dressing Care Report to your healthcare provider any signs of infection, such as:: chills, fever, night sweats, increased pain, unusual drainage and unusual redness Dressing: Leave skin glue and steri strips in place until they fall off on their own. You may remove the Tegaderm (clear sticker) and gauze from the upper midline port site 48 hours after surgery. You may take a shower 48 hours after surgery. Pat dry the incisions. Do not scrub the incisions; do not submerge in a pool or tub for two weeks. Visit Report/Discharge Packet Instructions: Glycohemoglobin, Type 2 Diabetes, DI for Cholecystectomy, DI for Laparoscopy, DI for Hyperglycemia -- Adult, DI for Prescription Opioid Use, [employer]: Wound Care Visit Report Forms: Patient Portal/API, Stroke Signs & Symptoms Discharge Data Primary Care Provider: Martin Ricketts V Quality VTE Deep Vein Thrombosis/Pulmonary Embolism Present on Admission: No
--- NOTE | 2019-12-31 13:37 | PM.PNPO.1 ---
Subjective Subjective Date Patient Seen: 12/31/19 Time Patient Seen: 13:00 Interval history: Patient post lap choly for biliary pancreatitis. She is having a lot of right upper quadrant discomfort today of but in her mid abdominal pain is gone essentially. She is having little bit of trouble taking a deep breath because of pain. This is pain on the right side. She is tolerating her diet thus far. This includes lunch of a regular diet. Nursing reports she would like to go home. Exam Vital Signs (past 8 hours): - 12/31/19 07:44 12/31/19 08:05 12/31/19 11:35 Temperature 97.4 F L 97.2 F L Pulse Rate 62 66 Respiratory Rate 16 18 Blood Pressure 175/71 H 149/74 H Pulse Oximetry 95 97 96 12/31/19 12:34 Temperature Pulse Rate Respiratory Rate Blood Pressure Pulse Oximetry 96 Oxygen Delivery Method Room Air Oxygen Flow Rate 0 Narrative Exam Narrative: Lungs are clear to auscultation. For the good air movement. Heart regular rate and rhythm without murmur gallop. Abdomen is soft. There is no unusual tenderness. There is no tenderness in the epigastrium or the left abdomen. There is some mild incisional tenderness in the right. There is no guarding. There is no cellulitis. Objective Labs Result Diagrams: 12/30/19 09:47 12/30/19 09:47 Assessment & Plan Post-op Postoperative Procedures: Procedures Operation Date: 12/29/19 17:00 Actual Procedures Side Surgeon p Laparoscopic Cholecystectomy with Intraoperative Cholangiograms poss. open Sallie Barrera MD Postoperative status narrative: Clinically doing well. Chest x-ray was reviewed and there is no evidence of fluid or infiltrate. I think she can probably safely be discharged as that is what she would like to have done. Follow up in the office. Quality VTE Deep Vein Thrombosis/Pulmonary Embolism Present on Admission: No
--- NOTE | 2019-12-31 14:32 | PC.NURSE ---
Day shift: Pt left unit in WC to car driven by her spouse. Taken by FOLDER TAPER OPERATOR. Paperwork signed and all questions answered. Pt has MD scripts. Pt has personal belongings as well as her home meds that were down in pharmacy.
== END 2019-12-31 14:44 | disposition home or self-care (01) | DRG 417 ==
LOC: ED 11:51 → AC 11:53
PROVIDERS: Surgery; Admitting Provider Internal Medicine; Emergency Provider Emergency Medicine; PCP Internal Medicine; Referring Provider Emergency Medicine; Visit Provider Internal Medicine
PROC: 0FT44ZZ Resection of Gallbladder, Percutaneous Endoscopic Approach (ICD-10-PCS; CPT 47562; principal; 2019-12-29 17:00)
DX: K80.00 Calculus of gallbladder with acute cholecystitis without obstruction (principal); K85.10 Biliary acute pancreatitis without necrosis or infection; K44.9 Diaphragmatic hernia without obstruction or gangrene; K21.9 Gastro-esophageal reflux disease without esophagitis; E78.5 Hyperlipidemia, unspecified; E11.9 Type 2 diabetes mellitus without complications; I10 Essential (primary) hypertension; Z11.59 Encounter for screening for other viral diseases
CPT/HCPCS: 36415; 71045; 71260; 74177; 76705; 80053; 81003; 81015; 82550; 82962; 83036; 83605; 83615; 83690; 84145; 84484; 85025; 85379; 85610; 85730; 87040; 87077; 87086; 87147; 87150; 87205; 87635; 93005; 96365; 96375; 99285; J0360; J0692; J1200; J1644; J1885; J2250; J2270; J2704; J2765; J3010

== ENCOUNTER → 2020-08-29 20:59 | Outpatient (ROUT) | payer MEDICARE, OTHER, SELFPAY ==
[2019-12-28 14:15] VITALS: BMI 30.2
[2020-08-29 21:12] LABS: Add Manual Diff / Slide Review NO; Basophils Absolute Auto 100 /uL (0-100); Basophils Percent Auto 0.8 % (0-2); Eosinophils Absolute Auto 300 /uL (0-450); Eosinophils Percent Auto 3.1 % (2-4); Hematocrit 44.5 % (36-46); Hemoglobin 14.6 g/dL (12.0-16.0); Lymphocytes Absolute Auto 2300 /uL (1100-4500); Lymphocytes Percent Auto 24.3 % (25-40); Mean Corpuscular HGB Conc 32.8 % (30-36); Mean Corpuscular Hemoglobin 30.3 PG (26-34); Mean Corpuscular Volume 92.5 fL (80-100); Monocytes Absolute Auto 800 /uL (0-900); Monocytes Percent Auto 8.3 % (3-14); Neutrophils Absolute Auto 6100 /uL (1500-7000); Neutrophils Percent Auto 63.5 % (50-75); Platelet Count 252 X10^3/uL (150-400); Red Cell Distribution Width 13.2 % (11.6-14.8); White Blood Cell Count 9.5 X10^3/uL (4.5-11.0)
[2020-08-29 21:49] LABS: TSH w/ Reflex to FT4 1.97 uIU/mL (0.47-4.68)
[2020-08-29 22:40] LABS: Aspartate Aminotransferase 20 IU/L (14-36); BUN Creatinine Ratio 21.1 (6-22); Blood Urea Nitrogen 15 mg/dL (7-17); Calcium 9.7 mg/dL (8.4-10.2); Carbon Dioxide 29 mmol/L (22-32); Chloride 102 mmol/L (98-107); Cholesterol 197 mg/dL (140-199); Estimated Glomerular Filt Rate > 60.0 mL/min (>60); Glucose 118 mg/dL (80-110); HDL Cholesterol 58 mg/dL (40-60); HEMOLYSIS < 15 (0-50); LDL Cholesterol Calculated 89 mg/dL (<100); Potassium 4.4 mmol/L (3.4-5.1); Sodium 136 mmol/L (137-145); Triglycerides 252 mg/dL (35-150)
[2020-08-29 23:28] LABS: Vitamin B12 757 pg/mL (239-931)
== END ==
PROVIDERS: PCP Internal Medicine; Visit Provider Internal Medicine
DX: E11.69 Type 2 diabetes mellitus with other specified complication (principal); E53.8 Deficiency of other specified B group vitamins; E78.2 Mixed hyperlipidemia
CPT/HCPCS: 80048; 80061; 82607; 84443; 84450; 85025

== ENCOUNTER → 2022-07-11 10:15 | Outpatient (CLI) | payer MEDICARE, OTHER, SELFPAY ==
[2019-12-28 14:15] VITALS: BMI 30.2
[2022-07-11 11:19] LABS: COVID19 -Nasal RAPID Negative (Negative)
== END ==
PROVIDERS: PCP Internal Medicine; Visit Provider Surgery
DX: Z01.812 Encounter for preprocedural laboratory examination; Z20.822 Contact with and (suspected) exposure to COVID-19
CPT/HCPCS: 87635; C9803

== ENCOUNTER 2022-07-14 12:12 | Day surgery (SDC) | payer MEDICARE, OTHER, SELFPAY ==
[2019-12-28 14:15] VITALS: BMI 30.2
--- NOTE | 2022-07-14 | PATH_ITS ---
[facility] Accession Number: [id number] . 01 Material submitted: . PART A: colon - ASCENDING COLON POLYP PART B: colon - TRANSVERSE COLON POLYP . 01 Diagnosis: A. Ascending Colon, Polyp, Biopsy: Tubular adenoma. . B. Transverse Colon, Polyp, Biopsy: Tubular adenoma. [facility] 07/16/2022 1522 Local . 01 Electronically signed: . Carol Hodgson MD, Pathologist NPI- [id number] . 01 Gross description: . Part A: ASCENDING COLON POLYP: Received in formalin is 1 fragment(s) of gan, soft tissue measuring 0.3 x 0.3 x 0.2 cm submitted entirely in 1 cassette(s) Part B: TRANSVERSE COLON POLYP: Received in formalin is 1 fragment(s) of gan, soft tissue measuring 0.3 x 0.2 x 0.2 cm submitted entirely in 1 cassette(s) /CPE 07/15/2022 0903 Local . 01 Pathologist provided ICD-10: D12.2, D12.3 . 01 CPT . 376446, 086201 Specimen Comment: A courtesy copy of this report has been sent to [phone] Performed at: 01 [facility] [address] [place] [address] [address], [place], [place] [id number] MD Álvaro William MD Phone: [phone]
--- NOTE | 2022-07-14 12:42 | PM.HP.1 ---
History of Present Illness History of Present Illness Date Patient Seen: 07/14/22 Time Patient Seen: 12:42 Chief complaint: DX COLONOSCOPY W/POS BX Narrative: I reviewed the recent clinic note by Dr. Welch. No changes. No recurrent bleeding. Patient History Medical History Hiatal hernia with GERD Hyperlipidemia Surgical History H/O total hysterectomy S/P Estuardo fundoplication (with gastrostomy tube placement) Family & Social History Social History: household members spouse Tobacco & Substance use: Smoking Status Former smoker alcohol intake frequency 0-2 drinks per day Substance Use Type does not use Meds Home Medications and Allergies Home Medications Medication Instructions Recorded Confirmed Type estradiol 0.5 mg tablet 0.5 mg PO DAILY 12/28/19 01/10/20 History omeprazole 20 mg capsule,delayed 20 mg PO DAILY 12/28/19 01/10/20 History release oxybutynin chloride 5 mg tablet 5 mg PO DAILY 12/28/19 01/10/20 History simvastatin 10 mg tablet 10 mg PO DAILY 12/28/19 01/10/20 History lisinopril 5 mg tablet 5 mg PO DAILY #30 tabs 12/31/19 01/10/20 Rx metformin 500 mg tablet,extended 500 mg PO DAILY #30 tabs 12/31/19 01/10/20 Rx release 24hr Allergies Allergy/AdvReac Type Severity Reaction Status Date / Time clindamycin Allergy Unknown Verified 01/10/20 09:17 Penicillins Allergy Unknown Verified 01/10/20 09:17 Sulfa (Sulfonamide Allergy Unknown Verified 01/10/20 09:17 Antibiotics) Review of Systems Review of Systems ROS: Yes All systems reviewed with the patient and are negative except as otherwise documented Exam Const General: cooperative HENMT Head: normal to inspection Eyes General: appearance normal, both eyes and all related structures Neck Neck: normal visual inspection Chest Chest: normal inspection of the chest Resp Effort & Inspection: normal respiratory effort Cardio Rate: regular rate GI Inspection: normal to inspection Skin General: no rashes or lesions noted Neuro General: patient alert and patient awake Extrem General: normal to inspection and no pedal edema Psych Appearance: grossly normal Assessment & Plan Assessment & Plan narrative: 81-year-old female with an abnormal CT scan and self-limited rectal bleeding. Colonoscopy is pursued today. Time Spent With Patient Critical Care time: I spent a total of [] minutes of critical care time on this patient's care today; this time is exclusive of procedural time.
--- NOTE | 2022-07-14 12:44 | PM.PREOP ---
Pre-operative Note COVID-19 COVID-19 status: Negative Result date/Date tested (Pos, Neg/Pending): 07/11/22 Criteria for continued procedure: Possibility delay results in more complex future surgery or treatment Interval Note History & Physical reviewed/Exam performed by Physician: Yes Changes to H&P: No ASA Class (for procedural sedation): II
--- NOTE | 2022-07-14 14:11 | PM.OP.COLON ---
Operative Date/Time/Diagnoses Date of procedure: 07/14/22 Time of procedure: 14:11 Pre-op diagnosis: Abnormal imaging and a self-limited episode of rectal bleeding Post-op diagnosis: same Procedure & Clinicians Study performed: Colonoscopy with hot snare polypectomy and cold snare polypectomy Same procedure as scheduled: Yes Indications: Abnormal imaging and a self-limited episode of rectal bleeding Surgeon: Curtis Adhikari Procedure Notes SCOAP/Timeout: Done Procedure in detail: After the risks and benefits were explained, written and verbal informed consent was obtained. The patient was brought into the procedure room and placed into the left lateral decubitus position. Please see nurse office worker notes for sedation details. Digital rectal examination was accomplished. The scope was introduced into the patient and advanced under direct visualization to the cecum as identified by the appendiceal orifice and ileocecal valve. The scope was slowly withdrawn to carefully examine the mucosa for any defects or lesions. Comprehensive imaging was accomplished throughout the rectum including the dentate line. The colon was decompressed, the scope was then removed from the patient who tolerated the procedure well. Pediatric colonoscope Bowel prep fair; with copious irrigation and suction this was rendered adequate. Scope withdrawal time: 23 minutes Sedation minutes: 29 Complications: none Impression: The patient had a fairly tortuous colon. Navigation was challenging to finally arriving cecum. Grade 1 internal hemorrhoids were noted. No evidence of proctitis nor colitis. There was a 7 mm sessile polyp in the transverse colon removed with hot snare. In the ascending colon there was a 5 mm polyp removed with cold snare initially. There was a small amount of ongoing oozing and this did not stop with application of cautery so a single endo clip was applied for confirmation of hemostasis. No additional significant pathology was appreciated throughout. Endoscopic diagnosis 1. Grade 1 hemorrhoids 2. Colon polyps Post-procedure Plan for aftercare: 1. Await histopathology. 2. The source for rectal bleeding back in April was not clearly identified at today's examination. Additionally there was no explanation for the lymphadenopathy described at CT scan. 3. Consider capsule endoscopy for further evaluation. Disposition: PACU
[2022-07-14 14:15] VITALS: BP 113/56; PULSE 63; RESP 17; O2SAT 100
[2022-07-14 14:19] VITALS: BP 125/49; PULSE 56; RESP 23; O2SAT 100
[2022-07-14 14:25] VITALS: BP 131/66; PULSE 55; RESP 17; TEMP 36.6; O2SAT 99
[2022-07-14 14:28] VITALS: BP 126/65; PULSE 54; RESP 1; O2SAT 100
[2022-07-14 14:40] VITALS: BP 125/74; PULSE 55; RESP 18; TEMP 35.8; O2SAT 99
== END 2022-07-14 14:58 | disposition home or self-care (01) ==
PROVIDERS: PCP Internal Medicine; Referring Provider Internal Medicine Gastroenterology; Visit Provider Internal Medicine Gastroenterology
PROC: 0DJD8ZZ Inspection of Lower Intestinal Tract, Via Natural or Artificial Opening Endoscopic (ICD-10-PCS; CPT 45378; principal; 2022-07-14 13:00)
DX: R93.3 Abnormal findings on diagnostic imaging of other parts of digestive tract (principal); K64.0 First degree hemorrhoids; D12.2 Benign neoplasm of ascending colon; D12.3 Benign neoplasm of transverse colon
CPT/HCPCS: 45385; J2704

== ENCOUNTER 2022-10-14 08:52 | Emergency (ER) | payer MEDICARE, OTHER, SELFPAY ==
[2019-12-28 14:15] VITALS: BMI 30.2
[2022-10-14] VITALS (7 sets, daily range): BP systolic 157–167; BP diastolic 70–85; PULSE 67–75; RESP 17–20; TEMP 36.8; O2SAT 97–100; BMI 27.3
--- NOTE | 2022-10-14 09:13 | DI.CT.S_ITS ---
PROCEDURE: CT ABDOMEN PELVIS W CON INDICATIONS: IV contrast only/generalized abdominal pain TECHNIQUE: After the administration of oral and IV contrast, axial sections were acquired from the lung bases to the pubic symphysis. Coronal and sagittal reformats were performed. For radiation dose reduction, the following was used: automated exposure control, adjustment of mA and/or kV according to patient size. COMPARISON: None. FINDINGS: Image quality: Excellent. Lung bases: Unremarkable. Heart: No significant findings. ABDOMEN: Liver: Hepatic steatosis is present. Gallbladder: Removed. Biliary ducts: Unremarkable. Pancreas: Unremarkable. Spleen: Unremarkable. Adrenal Glands: Unremarkable. Kidneys and Ureters: Unremarkable. Stomach and Bowel: Stomach, small bowel loops, and colon are unremarkable. Hiatal hernia is present. Peritoneum: No abnormal intraperitoneal fluid. No free air. Ventral Wall: No hernia. Abdominal Nodes: There is extensive focal and confluent adenopathy in the periaortic and aortic caval region. The large lymph node is in the left para aortic location measuring 2.3 cm on series 2, image 38. There is a more confluent mass anteriorly measuring 5.9 x 10.7 cm. Enlarged periportal/peripancreatic nodes are present the largest measuring 2.7 cm on series 2, image 28. Scattered lymph nodes/masses are present within the lower abdomen with the largest confluent focus measuring 7.3 x 6.4 cm on series 2, image 53. Iliac node is present measuring 7 mm on series 2, image 56. Vessels: Aorta and inferior vena cava are normal in size. PELVIS: Pelvic Organs: Unremarkable. Bladder: Unremarkable. Pelvic Nodes: No enlarged lymph nodes. Miscellaneous: No inguinal hernias are seen. Bones: Unremarkable. IMPRESSION: Extensive interval primarily abdominal adenopathy as described above. Overall appearance is highly suggestive of malignancy including lymphoma. Dictated by: Karli Crenshaw M.D. on 10/14/2022 at 10:22 Approved by: Karli Crenshaw M.D. on 10/14/2022 at 10:26
--- NOTE | 2022-10-14 09:14 | ED.ABDPAIN ---
HPI - Abdominal Pain General Chief Complaint: Abdominal Pain Stated Complaint: Upper and lower gut pain Time Seen by Provider: 10/14/22 09:02 Source: patient Mode of arrival: Ambulatory History of Present Illness HPI narrative: Patient here complaints epigastric and lower abdominal pain that does not radiate for the past 3 days. Has nausea but no vomiting. Epigastric pain is familiar to her as she states it feels like hiatal hernia discomfort she had 7 years ago before repair. It was done at [facility]. Has been doing well since then. Patient recently found to have lymph nodes in lower abdomen back in April and has been monitored. Had colonoscopy in the last [address] Adhikari. There was discussion about having EGD as well but was instructed to go to [facility] to have it done, so she is not had this done yet. No urinary complaints. Has had discomfort with eating. No chest pain. No back pain. Related Data Home Medications Medication Instructions Recorded Confirmed estradiol 0.5 mg tablet 0.5 mg PO DAILY 12/28/19 01/10/20 omeprazole 20 mg capsule,delayed 20 mg PO DAILY 12/28/19 07/14/22 release oxybutynin chloride 5 mg tablet 5 mg PO DAILY 12/28/19 07/14/22 simvastatin 10 mg tablet 10 mg PO DAILY 12/28/19 07/14/22 Previous Rx's Medication Instructions Recorded lisinopril 5 mg tablet 5 mg PO DAILY #30 tabs 12/31/19 metformin 500 mg tablet,extended 500 mg PO DAILY #30 tabs 12/31/19 release 24hr hydrocodone 5 mg-acetaminophen 325 1 tab PO Q6H PRN pain #20 tabs 10/14/22 mg tablet ondansetron 4 mg disintegrating 4 mg PO Q8H PRN nausea and 10/14/22 tablet vomiting #10 tabs Allergies Allergy/AdvReac Type Severity Reaction Status Date / Time clindamycin Allergy Unknown Verified 10/14/22 09:00 Penicillins Allergy Unknown Verified 10/14/22 09:00 Sulfa (Sulfonamide Allergy Unknown Verified 10/14/22 09:00 Antibiotics) Review of Systems Review of Systems Narrative: GENERAL: negative chills, fatigue, malaise, fever, sweats. HEENT: negative sinus pain, ear pain, sore throat RESPIRATORY: negative dyspnea, cough CARDIOVASCULAR: negative chest pain, palpitations GASTROINTESTINAL: Positive nausea, negative vomiting, positive abdominal pain : negative dysuria, frequency, hematuria MUSCULOSKELETAL: negative muscle or bony pain SKIN: negative rash, skin lesions NEUROLOGIC: negative weakness, numbness ROS Unobtainable: All systems reviewed & are unremarkable except as noted in HPI and below Patient History Medical History (Updated 10/14/22 @ 10:45 by Rupesh Garcia MD) Hiatal hernia with GERD Hyperlipidemia Surgical History H/O total hysterectomy S/P Estuardo fundoplication (with gastrostomy tube placement) Social History household members: spouse Smoking Status: Former smoker Smoking Status: Former smoker alcohol intake frequency: 0-2 drinks per day Alcohol type: wine Substance Use Type: does not use Exam Narrative Exam Narrative: GENERAL: in no distress, not toxic not dyspneic HEAD: Normocephalic. EYES: Pupils equal round ENT: Mucous membranes moist. NECK: Trachea midline. CARDIOVASCULAR: Regular rate and rhythm without murmurs RESPIRATORY: Clear to auscultation. Breath sounds equal bilaterally. No wheezes, rales, or rhonchi. GASTROINTESTINAL: Abdomen soft, reproducible epigastric and suprapubic tenderness but no peritoneal signs, bowel sounds are present. No pain out of proportion to exam. No CVA tenderness EXTREMITIES: No gross deformities. BACK: No flank tenderness. NEURO: AOx4. SKIN: Warm and dry PSYCH: Not anxious, is cooperative Initial Vital Signs Initial Vital Signs: Vital Signs Temperature 98.3 F 10/14/22 09:00 Pulse Rate 75 10/14/22 09:00 Respiratory Rate 20 10/14/22 09:00 Blood Pressure 167/85 H 10/14/22 09:00 Pulse Oximetry 98 10/14/22 09:00 Oxygen Delivery Method Room Air 10/14/22 09:00 Course Orders Ordered: Discontinued Medications Sodium Chloride (Normal Saline 0.9%) 500 mls @ 1,000 mls/hr IV BOLUS ONE Stop: 10/14/22 09:42 Last Infusion: 10/14/22 10:05 Dose: 0 mls/hr Documented By: Admin: 10/14/22 09:34 Dose: 1,000 mls/hr Documented By: AT Ondansetron HCl (Ondansetron 4 Mg/2 Ml Inj) 4 mg IV NOW PRN PRN Reason: Nausea And Vomiting Vital Signs Vital signs: Vital Signs - 8 hr 10/14/22 09:00 Temperature 98.3 F Pulse Rate 75 Respiratory Rate 20 Blood Pressure 167/85 H Pulse Oximetry 98 Oxygen Delivery Method Room Air MDM - Abdominal Pain Lab Data 10/14/22 09:00 10/14/22 09:00 Labs: Lab Results 10/14/22 10/14/22 10/14/22 Range/Units 09:00 09:00 10:40 WBC 13.0 H (4.5-11.0) X10^3/uL RBC 4.66 (4.0-5.2) X10^6/uL Hgb 13.9 (12.0-16.0) g/dL Hct 41.2 (36-46) % MCV 88.6 (80-100) fL MCH 29.9 (26-34) PG MCHC 33.7 (30-36) % RDW 13.2 (11.6-14.8) % Plt Count 263 (150-400) X10^3/uL Neut % (Auto) 76.7 H (50-75) % Lymph % (Auto) 9.6 L (25-40) % [place]ansom % (Auto) 10.3 (3-14) % Eos % (Auto) 2.8 (2-4) % Baso % (Auto) 0.6 (0-2) % Neut # (Auto) 23094 H (0761-0342) /uL Lymph # (Auto) 1300 (5249-2053) /uL Ransom # (Auto) 1300 H (0-900) /uL Eos # (Auto) 400 (0-450) /uL Baso # (Auto) 100 (0-100) /uL Sodium 137 (137-145) mmol/L Potassium 4.1 (3.4-5.1) mmol/L Chloride 101 (98-107) mmol/L Carbon Dioxide 29 (22-32) mmol/L BUN 18 H (7-17) mg/dL Creatinine 0.80 (0.52-1.04) mg/dL Estimated GFR > 60 (>60) mL/min BUN/Creatinine Ratio 22.5 H (6-22) Glucose 153 H (80-110) mg/dL Calcium 9.3 (8.4-10.2) mg/dL Total Bilirubin 0.8 (0.2-1.3) mg/dL AST 23 (14-36) IU/L ALT 16 (<35) IU/L Alkaline Phosphatase 94 (38-126) U/L Total Protein 6.9 (6.3-8.2) g/dL Albumin 4.2 (3.5-5.0) g/dL Globulin 2.7 (1.7-4.1) g/dL Albumin/Globulin Ratio 1.6 (1.0-2.8) Lipase 23 (23-300) U/L Urine RBC None seen (0-5/HPF) Urine WBC 1-5/hpf (0-5/HPF) Ur Squamous Epith Cells 0-1 /hpf (0-5/HPF) Urine Bacteria Few (2-10) H (None) Ur Culture Indicated? Specimen cultured Point of care testing: Urine Dip Bedside Urine Glucose Negative Bedside Urine Bilirubin - Negative Bedside Urine Ketone - Negative Urine Specific [place] 1.010 Bedside Urine Occult Blood - Negative Bedside Urine pH 7.0 Bedside Urine Protein - Negative Bedside Urine Urobilinogen - Negative Bedside Urine Nitrite - Negative Bedside Urine Leukocytes + [address] scan - abdomen/pelvis: Radiologist's Impression: PROCEDURE:? CT ABDOMEN PELVIS W CON ? INDICATIONS:? IV contrast only/generalized abdominal pain ? TECHNIQUE:? After the administration of oral and IV contrast, axial sections were acquired from the lung bases to the pubic symphysis.? Coronal and sagittal reformats were performed.? For radiation dose reduction, the following was used:? automated exposure control, adjustment of mA and/or kV according to patient size. ? COMPARISON:? None. ? FINDINGS:? Image quality:? Excellent.? ? Lung bases:? Unremarkable.? ? Heart:? No significant findings. ? ? ABDOMEN: Liver:? Hepatic steatosis is present.? ? Gallbladder:? Removed. Biliary ducts:? Unremarkable.? ? Pancreas:? Unremarkable.? ? Spleen:? Unremarkable.? ? Adrenal Glands:? Unremarkable.? ? Kidneys and Ureters:? Unremarkable.? ? ? Stomach and Bowel:? Stomach, small bowel loops, and colon are unremarkable.? Hiatal hernia is present. Peritoneum:? No abnormal intraperitoneal fluid.? No free air.? ? Ventral Wall: ? No hernia.? Abdominal Nodes:? There is extensive focal and confluent adenopathy in the periaortic and aortic caval region.? The large lymph node is in the left para aortic location measuring 2.3 cm on series 2, image 38. There is a more confluent mass anteriorly measuring 5.9 x 10.7 cm.? Enlarged periportal/peripancreatic nodes are present the largest measuring 2.7 cm on series 2, image 28. Scattered lymph nodes/masses are present within the lower abdomen with the largest confluent focus measuring 7.3 x 6.4 cm on series 2, image 53. ? Iliac node is present measuring 7 mm on series 2, image 56. Vessels:? Aorta and inferior vena cava are normal in size.? ? PELVIS: Pelvic Organs:? Unremarkable.? ? Bladder:? Unremarkable.? ? Pelvic Nodes: No enlarged lymph nodes.? Miscellaneous: No inguinal hernias are seen. ? ? ? Bones:? Unremarkable.? IMPRESSION:? ? Extensive interval primarily abdominal adenopathy as described above.? Overall appearance is highly suggestive of malignancy including lymphoma. ? ? Dictated by: Karli Crenshaw M.D. on 10/14/2022 at 10:22 ? ? Approved by: Karli Crenshaw M.D. on 10/14/2022 at 10:26? [facility] Narrative Medical decision making narrative: Patient here complaints epigastric and lower abdominal pain that does not radiate for the past 3 days. Has nausea but no vomiting. Epigastric pain is familiar to her as she states it feels like hiatal hernia discomfort she had 7 years ago before repair. It was done at [facility]. Has been doing well since then. Patient recently found to have lymph nodes in lower abdomen back in April and has been monitored. Had colonoscopy in the last [address] Adhikari. There was discussion about having EGD as well but was instructed to go to [facility] to have it done, so she is not had this done yet. No urinary complaints. Has had discomfort with eating. No chest pain. No back pain. After history and exam CBC CMP urinalysis lipase CT abdomen pelvis IV fluids ordered [facility] CC: Abdominal pain Complicating co-morbidities: History of hiatal hernia, cholecystectomy, abdominal lymphadenopathy Data collected from: Patient Medical records reviewed: Colonoscopy from July 2022 Differential considered: Includes but not limited to hiatal hernia gastritis appendicitis bowel obstruction ischemic bowel Exam documented above, pertinent findings include: Reproducible suprapubic and epigastric tenderness Lab Test results independently reviewed as above. Pertinent findings: WBC 13.0 hemoglobin 13.9 hematocrit 41 platelets 263 sodium 137 potassium 4.1 BUN 18 creatinine 0.8 AST 23 ALT 16 alkaline phosphatase 94 Imaging studies independently reviewed: CT abdomen pelvis extensive interval lymphadenopathy suggesting malignancy/lymphoma, hiatal hernia present Consultations: 10:[address] Casanova, primary care, he will work on getting patient PET scan as well as biopsy. He states he will need to get that before referral to Oncology. But he is going to be working on these items. Agrees for prescription for pain control for patient. He will see her in the office this week. Treatments: Normal saline Re-evaluations: 10:48 a[address] Updated patient results. CT concerning for worsening lymphadenopathy, possible cancer/lymphoma. Primary care has not been able to get PET scan done but has not given referral for Oncology at. Hiatal hernia likely has returned. I will prescribe pain medication for brief template pain control until office appointment. She does understand needs urgent follow up with Oncology. I will be reaching out to Dr. Casanova primary care today Discussion: Appropriate for discharge home. Patient does have good primary care for follow up. I did discuss with primary care for urgent oncology referral and PET scan. Otherwise laboratory studies are reassuring. Nontoxic at discharge. Urinalysis noted. However no urinary complaints. No antibiotics indicated at this time. Diagnosis: Lymphadenopathy/hiatal hernia Discharge Plan Departure Patient Disposition: Home Clinical Impression: Intra-abdominal lymphadenopathy, Hernia, hiatal Instructions: DI for Hiatal Hernia, DI for Lymphadenopathy Activity Restrictions/Additional Instructions: Please see family doctor this week for re-evaluation CT scan findings. You will need referral to oncology services as well as possible biopsy on outpatient basis. Also will need a PET scan. Prescription for pain control has been provided for you. No driving or operating machinery when taking this prescription. Return if worse if any questions or concerns. Please do follow up with M[facility] santos regarding your hiatal hernia. Or you may call Dr. Zhu with our general surgery for evaluation as well. Prescriptions: New hydrocodone-acetaminophen 5-325 mg tablet 1 tab PO Q6H PRN (Reason: pain) Qty: 20 0RF ondansetron 4 mg tablet,disintegrating 4 mg PO Q8H PRN (Reason: nausea and vomiting) Qty: 10 0RF No Action oxybutynin chloride 5 mg tablet 5 mg PO DAILY simvastatin 10 mg tablet 10 mg PO DAILY estradiol 0.5 mg tablet 0.5 mg PO DAILY omeprazole 20 mg capsule,delayed release(DR/EC) 20 mg PO DAILY Patient Comments: TAKE 1 CAPSULE BY MOUTH ONCE A DAY metformin 500 mg tablet extended release 24hr 500 mg PO DAILY Qty: 30 0RF lisinopril 5 mg tablet 5 mg PO DAILY Qty: 30 0RF Referrals: Samuel Casanova MD [Primary Care Provider] - Stand Alone Forms: Patient Portal/API
[2022-10-14 09:15] LABS: Add Manual Diff / Slide Review NO; Basophils Absolute Auto 100 /uL (0-100); Basophils Percent Auto 0.6 % (0-2); Eosinophils Absolute Auto 400 /uL (0-450); Eosinophils Percent Auto 2.8 % (2-4); Hematocrit 41.2 % (36-46); Hemoglobin 13.9 g/dL (12.0-16.0); Lymphocytes Absolute Auto 1300 /uL (1100-4500); Lymphocytes Percent Auto 9.6 % (25-40); Mean Corpuscular HGB Conc 33.7 % (30-36); Mean Corpuscular Hemoglobin 29.9 PG (26-34); Mean Corpuscular Volume 88.6 fL (80-100); Monocytes Absolute Auto 1300 /uL (0-900); Monocytes Percent Auto 10.3 % (3-14); Neutrophils Absolute Auto 10000 /uL (1500-7000); Neutrophils Percent Auto 76.7 % (50-75); Platelet Count 263 X10^3/uL (150-400); Red Blood Cell Count 4.66 X10^6/uL (4.0-5.2); Red Cell Distribution Width 13.2 % (11.6-14.8)
[2022-10-14 09:29] LABS: Alanine Aminotransferase 16 IU/L (<35); Albumin 4.2 g/dL (3.5-5.0); Albumin Globulin Ratio 1.6 (1.0-2.8); Alkaline Phosphatase 94 U/L (38-126); Aspartate Aminotransferase 23 IU/L (14-36); BUN Creatinine Ratio 22.5 (6-22); Bilirubin Total 0.8 mg/dL (0.2-1.3); Blood Urea Nitrogen 18 mg/dL (7-17); Calcium 9.3 mg/dL (8.4-10.2); Carbon Dioxide 29 mmol/L (22-32); Chloride 101 mmol/L (98-107); Estimated Glomerular Filt Rate > 60 mL/min (>60); Globulin 2.7 g/dL (1.7-4.1); Glucose 153 mg/dL (80-110); HEMOLYSIS < 15 (0-50); Lipase 23 U/L (23-300); Potassium 4.1 mmol/L (3.4-5.1); Sodium 137 mmol/L (137-145); Total Protein 6.9 g/dL (6.3-8.2)
[2022-10-14] MEDS: SODIUM CHLORIDE 0.9% 500 ML 1000 ML IV (09:34)
--- NOTE | 2022-10-14 10:55 | PC.NURSE ---
Report of CT faxed to Dr. Casanova in [facility].
[2022-10-14 11:28] LABS: Bacteria Urine Few (2-10); RBC Urine None Seen (0-5/HPF); Squamous Epithelial Cell Urine 0-1 /HPF (0-5/HPF); WBC Urine 1-5/HPF (0-5/HPF)
[2022-10-14 11:29] LABS: Culture Indicated Urine Specimen Cultured
== END 2022-10-14 11:32 | disposition home or self-care (01) ==
PROVIDERS: Emergency Provider Emergency Medicine; PCP Internal Medicine
DX: R59.0 Localized enlarged lymph nodes (principal); K44.9 Diaphragmatic hernia without obstruction or gangrene; R10.84 Generalized abdominal pain
CPT/HCPCS: 36415; 74177; 80053; 81003; 81015; 83690; 85025; 87086; 96360; 99284; Q9967

== ENCOUNTER 2022-11-03 10:39 | Emergency (ER) | payer MEDICARE, OTHER, SELFPAY ==
[2019-12-28 14:15] VITALS: BMI 30.2
[2022-11-03] VITALS (23 sets, daily range): BP systolic 122–167; BP diastolic 59–77; PULSE 68–76; RESP 11–24; TEMP 36.6; O2SAT 95–99; BMI 26.9
[2022-11-03 11:44] LABS: Add Manual Diff / Slide Review NO; Alanine Aminotransferase 25 IU/L (<35); Albumin 3.6 g/dL (3.5-5.0); Albumin Globulin Ratio 1.2 (1.0-2.8); Alkaline Phosphatase 127 U/L (38-126); Aspartate Aminotransferase 39 IU/L (14-36); BUN Creatinine Ratio 18.8 (6-22); Basophils Absolute Auto 100 /uL (0-100); Basophils Percent Auto 0.8 % (0-2); Bilirubin Total 0.9 mg/dL (0.2-1.3); Blood Urea Nitrogen 13 mg/dL (7-17); Calcium 9.1 mg/dL (8.4-10.2); Carbon Dioxide 29 mmol/L (22-32); Chloride 97 mmol/L (98-107); Creatine Kinase < 20 U/L (30-135); Eosinophils Absolute Auto 200 /uL (0-450); Eosinophils Percent Auto 1.6 % (2-4); Estimated Glomerular Filt Rate > 60 mL/min (>60); Globulin 3.1 g/dL (1.7-4.1); Glucose 126 mg/dL (80-110); HEMOLYSIS < 15 (0-50); Hematocrit 37.4 % (36-46); Hemoglobin 12.5 g/dL (12.0-16.0); Lipase 16 U/L (23-300); Lymphocytes Absolute Auto 800 /uL (1100-4500); Lymphocytes Percent Auto 7.2 % (25-40); Mean Corpuscular HGB Conc 33.3 % (30-36); Mean Corpuscular Hemoglobin 29.2 PG (26-34); Mean Corpuscular Volume 87.7 fL (80-100); Monocytes Absolute Auto 1500 /uL (0-900); Monocytes Percent Auto 13.4 % (3-14); Neutrophils Absolute Auto 8500 /uL (1500-7000); Platelet Count 301 X10^3/uL (150-400); Potassium 4.2 mmol/L (3.4-5.1); Red Blood Cell Count 4.26 X10^6/uL (4.0-5.2); Red Cell Distribution Width 13.3 % (11.6-14.8); Sodium 134 mmol/L (137-145); Total Protein 6.7 g/dL (6.3-8.2)
[2022-11-03] MEDS: SODIUM CHLORIDE 0.9% 1,000 ML 200 ML IV (11:47)
[2022-11-03 11:56] LABS: Troponin I < 0.012 ng/mL (0.01-0.034)
[2022-11-03 11:58] LABS: COVID19 -Nasal RAPID Negative (Negative)
--- NOTE | 2022-11-03 12:32 | DI.CT.S_ITS ---
PROCEDURE: CT CHEST ABD PEL W CON INDICATIONS: abd pain, chest pain;hx of abd adenopathy TECHNIQUE: After the administration of intravenous contrast, 5 mm thick sections acquired from the lung apices to the symphysis. 5 mm coronal and sagittal reformats were performed, with additional 7 mm MIP reformats through the lungs. For radiation dose reduction, the following was used: automated exposure control, adjustment of mA and/or kV according to patient size. COMPARISON: [facility], CT, CT CHEST ABD PEL W CON, 12/28/2019, 10:23. [facility], CT, CT ABDOMEN PELVIS W CON, 10/14/2022, 10:08. FINDINGS: Image quality: Good Lungs and pleura: No pleural effusions. No airspace consolidation. Scattered scarring/atelectasis. There are pulmonary micro nodules, for which follow-up imaging be obtained in the setting of probable malignancy, for example on the right. Mediastinum, heart, and esophagus: Enlarged periesophageal lymph nodes, measuring up to 1.5 centimeters on . Heart size is normal. There are coronary calcifications. Small hiatal hernia. Chest wall and thyroid: No axillary adenopathy. Chest wall is unremarkable. Solid organs: Liver is unremarkable. Cholecystectomy. Mildly dilated biliary tree post cholecystectomy, possibly physiologic. No pathologic dilation of the pancreatic duct. There is pancreatic parenchymal atrophy. Prominent spleen, without enlargement by size criteria. No adrenal nodules. No hydronephrosis. Vessels and lymph nodes: Main portal vein is patent. No abdominal aortic aneurysm. Mesenteric root and retroperitoneal adenopathy is significantly increased compared to 2019, and has changed compared to October 14, 2022. A solid index lesion in the aortocaval region at the level of the right kidney () measures 1.9 centimeters, slightly enlarged. A left periaortic lymph node is significantly enlarged, now with more necrosis measuring up to 3.4 centimeters, previously 2.5 centimeters. Bowel and peritoneum: No evidence of small bowel obstruction. In the left jejunal mesentery, there appears to be desmoplastic reaction adjacent to the mesenteric adenopathy () no pathologic ascites. Colonic diverticulosis. Body wall: Unremarkable Pelvis: Bladder is unremarkable. Hysterectomy. Bones: No acute or suspicious osseous finding. Degenerative changes are present. IMPRESSION: Increased size and necrosis of retroperitoneal and mesenteric root adenopathy compared to October. Oncologic consultation is advised. This is compatible with malignancy, likely lymphoma. 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 Other findings as above. Dictated by: Gold Rodriguez M.D. on 11/03/2022 at 14:03 Approved by: Gold Rodriguez M.D. on 11/03/2022 at 14:12
[2022-11-03] MEDS: MORPHINE 4 MG/ML INJ IV (13:04)
[2022-11-03] MEDS: FAMOTIDINE 20 MG/2 ML VIAL IV (13:58)
[2022-11-03] MEDS: MAG HYDROX/ALUMINUM/SIMETH SUS 20 ML, LIDOCAINE VISCOUS 2% 15 ML PO (13:58)
--- NOTE | 2022-11-03 20:47 | ED.ABDPAIN ---
HPI - Abdominal Pain <Gregg Echevarria PA-C - Last Filed: 11/19/22 20:11> General Chief Complaint: Abdominal Pain Stated Complaint: nodules in gut & chest pain T-4 not eating/drink Time Seen by Provider: 11/03/22 12:15 Source: patient and family Mode of arrival: Ambulatory History of Present Illness HPI narrative: 82-year-old female presents to the ED with 4 days of worsening abdominal pain. Patient has been diagnosed on CT with abdominal adenopathy, highly suggestive of malignancy including lymphoma. Last CT was on 10/27/22 at [facility]. patient states that her PCP Dr. Casanova has ordered a needle biopsy which is required prior to referral to Oncology. Patient states she is unclear as to when she can get the biopsy. Meanwhile, patient's abdominal pain has worsened. Patient denies fever, chills, chest pain, shortness of breath, nausea, vomiting, dysuria, lightheadedness, dizziness, syncope. Patient also endorses constipation, last bowel movement was 4 days ago. Patient endorses anorexia and the inability to eat very much. Patient has had unintentional weight loss. Related Data Home Medications Medication Instructions Recorded Confirmed estradiol 0.5 mg tablet 0.5 mg PO DAILY 12/28/19 01/10/20 omeprazole 20 mg capsule,delayed 20 mg PO DAILY 12/28/19 07/14/22 release oxybutynin chloride 5 mg tablet 5 mg PO DAILY 12/28/19 07/14/22 simvastatin 10 mg tablet 10 mg PO DAILY 12/28/19 07/14/22 Previous Rx's Medication Instructions Recorded lisinopril 5 mg tablet 5 mg PO DAILY #30 tabs 12/31/19 metformin 500 mg tablet,extended 500 mg PO DAILY #30 tabs 12/31/19 release 24hr hydrocodone 5 mg-acetaminophen 325 1 tab PO Q6H PRN pain #20 tabs 10/14/22 mg tablet ondansetron 4 mg disintegrating 4 mg PO Q8H PRN nausea and 10/14/22 tablet vomiting #10 tabs Allergies Allergy/AdvReac Type Severity Reaction Status Date / Time clindamycin Allergy Unknown Verified 11/03/22 11:01 Penicillins Allergy Unknown Verified 11/03/22 11:01 Sulfa (Sulfonamide Allergy Unknown Verified 11/03/22 11:01 Antibiotics) Review of Systems <Gregg Echevarria PA-C - Last Filed: 11/19/22 20:11> Review of Systems ROS Unobtainable: All systems reviewed & are unremarkable except as noted in HPI and below Constitutional Constitutional: Denies chills, Denies fatigue, Denies fever(s), Denies frequent falls, Denies lethargy, Reports poor appetite, Denies weakness and Reports weight loss Eyes Eyes: Denies change in vision, Denies eye discharge, Denies irritation and Denies loss of vision ENT Ears, Nose, Mouth, and Throat: Denies change in voice, Denies dizziness, Denies neck pain, Denies sore throat and Denies throat swelling Cardiovascular Cardiovascular: Denies chest pain, Denies irregular heart rhythm, Denies lightheadedness, Denies palpitations, Denies dyspnea, Denies dyspnea on exertion and Denies orthopnea Respiratory Respiratory: Denies cough, Denies dyspnea, Denies dyspnea on exertion and Denies wheezing Gastrointestinal Gastrointestinal: Reports abdominal pain, Denies change in bowel habits, Denies diarrhea, Reports nausea and Denies vomiting Genitourinary Genitourinary: Denies hematuria, Denies flank pain, Denies urinary incontinence and Denies urinary urgency Musculoskeletal Musculoskeletal: Denies back pain, Denies muscle weakness, Denies neck pain, Denies numbness and Denies tingling Integumentary/Breasts Skin/Breast: Denies pruritus, Denies erythema, Denies rash and Denies wounds Neurologic Neurologic: Denies behavioral changes, Denies confusion, Denies dizziness, Denies frequent falls, Denies loss of vision, Denies numbness, Denies tingling and Denies weakness Psychiatric Psychiatric: Denies anxiety, Denies behavioral changes, Denies confusion, Denies depression, Denies homicidal ideation and Denies suicidal ideation Endocrine Endocrine: Denies fatigue, Denies flushing and Denies palpitations Hematologic/Lymphatic Hematologic/Lymphatic: Denies easy bruising Allergic/Immunologic Allergic/Immunologic: Denies urticaria, Denies throat swelling and Denies wheezing Patient History <Gregg Echevarria PA-C - Last Filed: 11/19/22 20:11> Medical History (Updated 11/18/22 @ 00:00 by ) Hiatal hernia with GERD Hyperlipidemia Surgical History H/O total hysterectomy S/P Estuardo fundoplication (with gastrostomy tube placement) Social History household members: spouse Smoking Status: Former smoker Smoking Status: Former smoker alcohol intake frequency: 0-2 drinks per day Alcohol type: wine Substance Use Type: does not use Exam <Gregg Echevarria PA-C - Last Filed: 11/19/22 20:11> Narrative Exam Narrative: Const General:?cooperative, healthy appearing and comfortable [facility] Head:?normal to inspection Ears:?hearing grossly normal bilaterally Nose:?external nose normal Face and sinus:?normal facial exam and sinuses nontender Mouth:?oral mucosae normal Throat:?posterior oropharynx normal Eyes General:?appearance normal, both eyes and all related structures Neck Neck:?normal visual inspection and no lymphadenopathy noted Resp Effort & Inspection:?normal respiratory effort Auscultation:?clear to auscultation bilaterally Cardio Rate:?regular rate Rhythm:?regular rhythm GI Abdomen is soft, nondistended. Generalized tenderness to palpation. Neuro General:?patient alert, patient awake and patient oriented x3 Initial Vital Signs Initial Vital Signs: Vital Signs Temperature 97.9 F 11/03/22 10:40 Pulse Rate 72 11/03/22 10:40 Respiratory Rate 18 11/03/22 10:40 Blood Pressure 139/77 11/03/22 10:40 Pulse Oximetry 99 11/03/22 10:40 Oxygen Delivery Method Room Air 11/03/22 10:40 <Kelsey Vazquez DO - Last Filed: 11/20/22 20:13> Initial Vital Signs Initial Vital Signs: Vital Signs Temperature 97.9 F 11/03/22 10:40 Pulse Rate 72 11/03/22 10:40 Respiratory Rate 18 11/03/22 10:40 Blood Pressure 139/77 11/03/22 10:40 Pulse Oximetry 99 11/03/22 10:40 Oxygen Delivery Method Room Air 11/03/22 10:40 Course <Gregg Echevarria PA-C - Last Filed: 11/19/22 20:11> Orders Ordered: Discontinued Medications Al Hydrox/Mg Hydrox/Simethicone 20 ml/ Lidocaine HCl 15 ml 0 ml PO NOW ONE Stop: 11/03/22 13:18 Last Admin: 11/03/22 13:58 Dose: 15 ml Documented By: AUDI Famotidine (Famotidine 20 Mg/2 Ml Vial) 20 mg IV NOW PAUL Last Admin: 11/03/22 13:58 Dose: 20 mg Documented By: AUDI Sodium Chloride (Normal Saline 0.9%) 1,000 mls @ 200 mls/hr IV BOLUS ONE Stop: 11/03/22 16:02 Last Infusion: 11/03/22 16:56 Dose: 0 mls/hr Documented By: Admin: 11/03/22 11:47 Dose: 200 mls/hr Documented By: RB Morphine Sulfate (Morphine 4 Mg/Ml Inj) 4 mg IV NOW ONE Stop: 11/03/22 13:02 Last Admin: 11/03/22 13:04 Dose: 4 mg Documented By: RB Ondansetron HCl (Ondansetron 4 Mg Odt) 4 mg PO NOW PRN PRN Reason: Nausea And Vomiting Ondansetron HCl (Ondansetron 4 Mg/2 Ml Inj) 4 mg IV NOW PRN PRN Reason: Nausea And Vomiting Vital Signs Vital signs: Vital Signs - 8 hr 11/03/22 13:00 11/03/22 13:00 11/03/22 13:10 Pulse Rate 71 75 Respiratory Rate 13 23 Blood Pressure 167/68 H Pulse Oximetry 99 Oxygen Delivery Method 11/03/22 13:10 11/03/22 13:15 11/03/22 13:15 Pulse Rate 75 Respiratory Rate 24 Blood Pressure 143/66 H 134/63 Pulse Oximetry 98 Oxygen Delivery Method 11/03/22 13:30 11/03/22 13:41 11/03/22 13:41 Pulse Rate 76 73 Respiratory Rate 12 12 Blood Pressure 133/64 Pulse Oximetry 97 96 Oxygen Delivery Method 11/03/22 13:45 11/03/22 13:45 11/03/22 14:00 Pulse Rate 73 Respiratory Rate 14 Blood Pressure 122/60 125/60 Pulse Oximetry 96 Oxygen Delivery Method 11/03/22 14:00 11/03/22 14:15 11/03/22 14:15 Pulse Rate 72 75 Respiratory Rate 15 13 Blood Pressure 139/65 Pulse Oximetry 97 98 Oxygen Delivery Method 11/03/22 14:30 11/03/22 14:30 11/03/22 14:45 Pulse Rate 72 73 Respiratory Rate Blood Pressure 145/61 H Pulse Oximetry 96 98 Oxygen Delivery Method 11/03/22 14:45 11/03/22 15:00 11/03/22 15:00 Pulse Rate 73 Respiratory Rate 12 Blood Pressure 143/65 H 140/62 Pulse Oximetry 96 Oxygen Delivery Method 11/03/22 15:15 11/03/22 15:15 11/03/22 15:30 Pulse Rate 74 Respiratory Rate 11 L Blood Pressure 143/65 H 132/60 Pulse Oximetry 98 Oxygen Delivery Method 11/03/22 15:30 11/03/22 15:45 11/03/22 15:45 Pulse Rate 76 75 Respiratory Rate 16 16 Blood Pressure 135/60 Pulse Oximetry 97 98 Oxygen Delivery Method 11/03/22 16:00 11/03/22 16:00 11/03/22 16:15 Pulse Rate 74 74 Respiratory Rate 13 14 Blood Pressure 137/63 Pulse Oximetry 97 97 Oxygen Delivery Method 11/03/22 16:15 11/03/22 17:09 Pulse Rate 68 Respiratory Rate 21 Blood Pressure 143/65 H 140/62 Pulse Oximetry 95 Oxygen Delivery Method Room Air <Kelsey Vazquez, - Last Filed: 11/20/22 20:13> Orders Ordered: Discontinued Medications Al Hydrox/Mg Hydrox/Simethicone 20 ml/ Lidocaine HCl 15 ml 0 ml PO NOW ONE Stop: 11/03/22 13:18 Last Admin: 11/03/22 13:58 Dose: 15 ml Documented By: AMU Famotidine (Famotidine 20 Mg/2 Ml Vial) 20 mg IV NOW PAUL Last Admin: 11/03/22 13:58 Dose: 20 mg Documented By: AMU Sodium Chloride (Normal Saline 0.9%) 1,000 mls @ 200 mls/hr IV BOLUS ONE Stop: 11/03/22 16:02 Last Infusion: 11/03/22 16:56 Dose: 0 mls/hr Documented By: Admin: 11/03/22 11:47 Dose: 200 mls/hr Documented By: RB Morphine Sulfate (Morphine 4 Mg/Ml Inj) 4 mg IV NOW ONE Stop: 11/03/22 13:02 Last Admin: 11/03/22 13:04 Dose: 4 mg Documented By: RB Ondansetron HCl (Ondansetron 4 Mg Odt) 4 mg PO NOW PRN PRN Reason: Nausea And Vomiting Ondansetron HCl (Ondansetron 4 Mg/2 Ml Inj) 4 mg IV NOW PRN PRN Reason: Nausea And Vomiting Vital Signs Vital signs: Vital Signs - 8 hr 11/03/22 13:00 11/03/22 13:00 11/03/22 13:10 Pulse Rate 71 75 Respiratory Rate 13 23 Blood Pressure 167/68 H Pulse Oximetry 99 Oxygen Delivery Method 11/03/22 13:10 11/03/22 13:15 11/03/22 13:15 Pulse Rate 75 Respiratory Rate 24 Blood Pressure 143/66 H 134/63 Pulse Oximetry 98 Oxygen Delivery Method 11/03/22 13:30 11/03/22 13:41 11/03/22 13:41 Pulse Rate 76 73 Respiratory Rate 12 12 Blood Pressure 133/64 Pulse Oximetry 97 96 Oxygen Delivery Method 11/03/22 13:45 11/03/22 13:45 11/03/22 14:00 Pulse Rate 73 Respiratory Rate 14 Blood Pressure 122/60 125/60 Pulse Oximetry 96 Oxygen Delivery Method 11/03/22 14:00 11/03/22 14:15 11/03/22 14:15 Pulse Rate 72 75 Respiratory Rate 15 13 Blood Pressure 139/65 Pulse Oximetry 97 98 Oxygen Delivery Method 11/03/22 14:30 11/03/22 14:30 11/03/22 14:45 Pulse Rate 72 73 Respiratory Rate Blood Pressure 145/61 H Pulse Oximetry 96 98 Oxygen Delivery Method 11/03/22 14:45 11/03/22 15:00 11/03/22 15:00 Pulse Rate 73 Respiratory Rate 12 Blood Pressure 143/65 H 140/62 Pulse Oximetry 96 Oxygen Delivery Method 11/03/22 15:15 11/03/22 15:15 11/03/22 15:30 Pulse Rate 74 Respiratory Rate 11 L Blood Pressure 143/65 H 132/60 Pulse Oximetry 98 Oxygen Delivery Method 11/03/22 15:30 11/03/22 15:45 11/03/22 15:45 Pulse Rate 76 75 Respiratory Rate 16 16 Blood Pressure 135/60 Pulse Oximetry 97 98 Oxygen Delivery Method 11/03/22 16:00 11/03/22 16:00 11/03/22 16:15 Pulse Rate 74 74 Respiratory Rate 13 14 Blood Pressure 137/63 Pulse Oximetry 97 97 Oxygen Delivery Method 11/03/22 16:15 11/03/22 17:09 Pulse Rate 68 Respiratory Rate 21 Blood Pressure 143/65 H 140/62 Pulse Oximetry 95 Oxygen Delivery Method Room Air MDM - Abdominal Pain <Gregg Echevarria PA-C - Last Filed: 11/19/22 20:11> Lab Data 11/03/22 11:20 11/03/22 11:20 Labs: Lab Results 11/03/22 11/03/22 11/03/22 Range/Units 11:20 11:20 11:20 WBC 11.0 (4.5-11.0) X10^3/uL RBC 4.26 (4.0-5.2) X10^6/uL Hgb 12.5 (12.0-16.0) g/dL Hct 37.4 (36-46) % MCV 87.7 (80-100) fL MCH 29.2 (26-34) PG MCHC 33.3 (30-36) % RDW 13.3 (11.6-14.8) % Plt Count 301 (150-400) X10^3/uL Neut % (Auto) 77.0 H (50-75) % Lymph % (Auto) 7.2 L (25-40) % [place] % (Auto) 13.4 (3-14) % Eos % (Auto) 1.6 L (2-4) % Baso % (Auto) 0.8 (0-2) % Neut # (Auto) 8500 H (2299-9123) /uL Lymph # (Auto) 800 L (2859-0405) /uL [place] # (Auto) 1500 H (0-900) /uL Eos # (Auto) 200 (0-450) /uL Baso # (Auto) 100 (0-100) /uL Sodium 134 L (137-145) mmol/L Potassium 4.2 (3.4-5.1) mmol/L Chloride 97 L (98-107) mmol/L Carbon Dioxide 29 (22-32) mmol/L BUN 13 (7-17) mg/dL Creatinine 0.69 (0.52-1.04) mg/dL Estimated GFR > 60 (>60) mL/min BUN/Creatinine Ratio 18.8 (6-22) Glucose 126 H (80-110) mg/dL Calcium 9.1 (8.4-10.2) mg/dL Total Bilirubin 0.9 (0.2-1.3) mg/dL AST 39 H (14-36) IU/L ALT 25 (<35) IU/L Alkaline Phosphatase 127 H (38-126) U/L Total Creatine Kinase < 20 L (30-135) U/L CK-MB (CK-2) TNP CK-MB (CK-2) Rel Index TNP Troponin I < 0.012 (0.01-0.034) ng/mL Total Protein 6.7 (6.3-8.2) g/dL Albumin 3.6 (3.5-5.0) g/dL Globulin 3.1 (1.7-4.1) g/dL Albumin/Globulin Ratio 1.2 (1.0-2.8) Lipase 16 L (23-300) U/L SARS-CoV-2 (PCR) (Negative) 11/03/22 Range/Units 11:20 WBC (4.5-11.0) X10^3/uL RBC (4.0-5.2) X10^6/uL Hgb (12.0-16.0) g/dL Hct (36-46) % MCV (80-100) fL MCH (26-34) PG MCHC (30-36) % RDW (11.6-14.8) % Plt Count (150-400) X10^3/uL Neut % (Auto) (50-75) % Lymph % (Auto) (25-40) % [place] % (Auto) (3-14) % Eos % (Auto) (2-4) % Baso % (Auto) (0-2) % Neut # (Auto) (6306-0618) /uL Lymph # (Auto) (1289-8041) /uL [place] # (Auto) (0-900) /uL Eos # (Auto) (0-450) /uL Baso # (Auto) (0-100) /uL Sodium (137-145) mmol/L Potassium (3.4-5.1) mmol/L Chloride (98-107) mmol/L Carbon Dioxide (22-32) mmol/L BUN (7-17) mg/dL Creatinine (0.52-1.04) mg/dL Estimated GFR (>60) mL/min BUN/Creatinine Ratio (6-22) Glucose (80-110) mg/dL Calcium (8.4-10.2) mg/dL Total Bilirubin (0.2-1.3) mg/dL AST (14-36) IU/L ALT (<35) IU/L Alkaline Phosphatase (38-126) U/L Total Creatine Kinase (30-135) U/L CK-MB (CK-2) CK-MB (CK-2) Rel Index Troponin I (0.01-0.034) ng/mL Total Protein (6.3-8.2) g/dL Albumin (3.5-5.0) g/dL Globulin (1.7-4.1) g/dL Albumin/Globulin Ratio (1.0-2.8) Lipase (23-300) U/L SARS-CoV-2 (PCR) Negative (Negative) Point of care testing: Urine Dip Bedside Urine Glucose Negative Bedside Urine Bilirubin - Negative Bedside Urine Ketone +/- 5 Urine Specific [place] 1.010 Bedside Urine Occult Blood - Negative Bedside Urine pH 6.0 Bedside Urine Protein - Negative Bedside Urine Urobilinogen 0.2 Bedside Urine Nitrite - Negative Bedside Urine Leukocytes - Negative Esterase MDM Narrative Medical decision making narrative: 82-year-old female presents to the ED with 4 days of worsening abdominal pain. Patient has been diagnosed on CT with abdominal adenopathy, highly suggestive of malignancy including lymphoma. Concern for worsening adenopathy versus malignancy versus constipation versus other acute intra-abdominal pathology. Will obtain labs, UA, CT abdomen pelvis. Labs, UA without acute findings. CT abdomen pelvis shows increased size and necrosis of retroperitoneal and mesenteric root adenopathy compared to October. Likely compatible with malignancy, likely lymphoma. 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 [facility] radiology was consulted, the radiologist approved the needle biopsy to be performed here at [facility]. They will call patient tomorrow to schedule the procedure for either the end of this week or the beginning of next week. Recommend oxycodone for the pain. Discussed plan with patient and patient's daughter. They were appreciative of the care and clarity that they received today regarding next steps. ED return precautions were discussed with patient. Patient verbalized understanding. Medical records reviewed: Yes <Kelsey Vazquez DO - Last Filed: 11/20/22 20:13> Lab Data Labs: Lab Results 11/03/22 11/03/2223 Range/Units 11:20 11:20 11:20 WBC 11.0 (4.5-11.0) X10^3/uL RBC 4.26 (4.0-5.2) X10^6/uL Hgb 12.5 (12.0-16.0) g/dL Hct 37.4 (36-46) % MCV 87.7 (80-100) fL MCH 29.2 (26-34) PG MCHC 33.3 (30-36) % RDW 13.3 (11.6-14.8) % Plt Count 301 (150-400) X10^3/uL Neut % (Auto) 77.0 H (50-75) % Lymph % (Auto) 7.2 L (25-40) % [place] % (Auto) 13.4 (3-14) % Eos % (Auto) 1.6 L (2-4) % Baso % (Auto) 0.8 (0-2) % Neut # (Auto) 8500 H (8171-3413) /uL Lymph # (Auto) 800 L (0179-0492) /uL [place] # (Auto) 1500 H (0-900) /uL Eos # (Auto) 200 (0-450) /uL Baso # (Auto) 100 (0-100) /uL Sodium 134 L (137-145) mmol/L Potassium 4.2 (3.4-5.1) mmol/L Chloride 97 L (98-107) mmol/L Carbon Dioxide 29 (22-32) mmol/L BUN 13 (7-17) mg/dL Creatinine 0.69 (0.52-1.04) mg/dL Estimated GFR > 60 (>60) mL/min BUN/Creatinine Ratio 18.8 (6-22) Glucose 126 H (80-110) mg/dL Calcium 9.1 (8.4-10.2) mg/dL Total Bilirubin 0.9 (0.2-1.3) mg/dL AST 39 H (14-36) IU/L ALT 25 (<35) IU/L Alkaline Phosphatase 127 H (38-126) U/L Total Creatine Kinase < 20 L (30-135) U/L CK-MB (CK-2) TNP CK-MB (CK-2) Rel Index TNP Troponin I < 0.012 (0.01-0.034) ng/mL Total Protein 6.7 (6.3-8.2) g/dL Albumin 3.6 (3.5-5.0) g/dL Globulin 3.1 (1.7-4.1) g/dL Albumin/Globulin Ratio 1.2 (1.0-2.8) Lipase 16 L (23-300) U/L SARS-CoV-2 (PCR) (Negative) 11/03/22 Range/Units 11:20 WBC (4.5-11.0) X10^3/uL RBC (4.0-5.2) X10^6/uL Hgb (12.0-16.0) g/dL Hct (36-46) % MCV (80-100) fL MCH (26-34) PG MCHC (30-36) % RDW (11.6-14.8) % Plt Count (150-400) X10^3/uL Neut % (Auto) (50-75) % Lymph % (Auto) (25-40) % [place] % (Auto) (3-14) % Eos % (Auto) (2-4) % Baso % (Auto) (0-2) % Neut # (Auto) (3595-3083) /uL Lymph # (Auto) (9891-7121) /uL [place] # (Auto) (0-900) /uL Eos # (Auto) (0-450) /uL Baso # (Auto) (0-100) /uL Sodium (137-145) mmol/L Potassium (3.4-5.1) mmol/L Chloride (98-107) mmol/L Carbon Dioxide (22-32) mmol/L BUN (7-17) mg/dL Creatinine (0.52-1.04) mg/dL Estimated GFR (>60) mL/min BUN/Creatinine Ratio (6-22) Glucose (80-110) mg/dL Calcium (8.4-10.2) mg/dL Total Bilirubin (0.2-1.3) mg/dL AST (14-36) IU/L ALT (<35) IU/L Alkaline Phosphatase (38-126) U/L Total Creatine Kinase (30-135) U/L CK-MB (CK-2) CK-MB (CK-2) Rel Index Troponin I (0.01-0.034) ng/mL Total Protein (6.3-8.2) g/dL Albumin (3.5-5.0) g/dL Globulin (1.7-4.1) g/dL Albumin/Globulin Ratio (1.0-2.8) Lipase (23-300) U/L SARS-CoV-2 (PCR) Negative (Negative) Point of care testing: Urine Dip Bedside Urine Glucose Negative Bedside Urine Bilirubin - Negative Bedside Urine Ketone +/- 5 Urine Specific [place] 1.010 Bedside Urine Occult Blood - Negative Bedside Urine pH 6.0 Bedside Urine Protein - Negative Bedside Urine Urobilinogen 0.2 Bedside Urine Nitrite - Negative Bedside Urine Leukocytes - Negative Esterase Discharge Plan Departure Patient Disposition: Home Clinical Impression: Abdominal pain Instructions: DI for Abdominal Pain-Adult Activity Restrictions/Additional Instructions: You were evaluated in the ED today for worsening abdominal pain. Your CT scan does show increased size and necrosis of retroperitoneal and mesenteric root adenopathy compared to the scan on 10/14/2022. You have been referred for a needle biopsy as ordered by your primary care doctor Dr. Casanova. Our radiologist has approved your procedure to be performed at the [facility], you will be hearing from [facility] tomorrow to schedule for a procedure that might be scheduled either at the end of this week or the beginning of next week. You may also give them a call at [phone] tomorrow morning. You may take oxycodone for the pain. Please return to the ED if your symptoms worsen, you are persistently vomiting, you experience fevers, chills. Prescriptions: No Action oxybutynin chloride 5 mg tablet 5 mg PO DAILY simvastatin 10 mg tablet 10 mg PO DAILY estradiol 0.5 mg tablet 0.5 mg PO DAILY omeprazole 20 mg capsule,delayed release(DR/EC) 20 mg PO DAILY Patient Comments: TAKE 1 CAPSULE BY MOUTH ONCE A DAY metformin 500 mg tablet extended release 24hr 500 mg PO DAILY Qty: 30 0RF lisinopril 5 mg tablet 5 mg PO DAILY Qty: 30 0RF hydrocodone-acetaminophen 5-325 mg tablet 1 tab PO Q6H PRN (Reason: pain) Qty: 20 0RF ondansetron 4 mg tablet,disintegrating 4 mg PO Q8H PRN (Reason: nausea and vomiting) Qty: 10 0RF Referrals: Samuel Casanova MD [Primary Care Provider] - Stand Alone Forms: Patient Portal/API <Kelsey Vazquez DO - Last Filed: 11/20/22 20:13> Cosign ED Attending Nanetteature Attestation: I was immediately available in the department for consultation.
== END 2022-11-03 17:10 | disposition home or self-care (01) ==
PROVIDERS: Emergency Medicine; Emergency Provider Student in an Organized Health Care Education/Training Program; PCP Internal Medicine
DX: R10.9 Unspecified abdominal pain (principal); Z79.899 Other long term (current) drug therapy; Z20.822 Contact with and (suspected) exposure to COVID-19
CPT/HCPCS: 36415; 71260; 74177; 80053; 81003; 82550; 83690; 84484; 85025; 87635; 93005; 96361; 96374; 96375; 99284; C9803; J2270